=== PATIENT | female | born 1955 | race Caucasian/White ===

== ENCOUNTER → 2016-09-18 | Outpatient (CLI) | payer OTHER ==
[~2016-09-18] MED LIST: ACCL20 PO; ALBU0.08 INH; ALBU1AER9 INH; ARM1 PO; ASPI81TA57 PO; CALC600T9 PO; CYCL10TA6 PO; DICL1GEL28 TOP; FLUT1INH INH; GABA-112 PO; HYZ/50125 PO; IBUP-1050 PO; LORA-741 PO; LPT/20 PO; NRN100 PO; OMEP20CA9 PO; TRAM-10 PO; TRAZ50TA35 PO
== END | disposition home or self-care (01) ==
LOC: C.MAMM 12:54
PROVIDERS: ATTEND Internal Medicine
DX: M81.0 Age-related osteoporosis without current pathological fracture (principal); M85.80 Other specified disorders of bone density and structure, unspecified site

== ENCOUNTER → 2016-10-29 | Outpatient (CLI) | payer OTHER ==
[2016-10-29 09:35] LABS: HEMATOCRIT 44.6 % (37-47); MEAN CELL VOLUME 90.5 fL (80-100); MEAN CORPUSCULAR HGB CONC 34.3 g/dl (32-36); MEAN PLATELET VOLUME 10.1 fL (7.4-10.4); PLATELET COUNT 238 K/uL (130-400); RED BLOOD COUNT 4.93 M/uL (4.2-5.4); WHITE BLOOD COUNT 6.64 K/uL (4.8-10.8)
[2016-10-29 09:52] LABS: ALT/SGPT 26 U/L (12-78); BLOOD UREA NITROGEN 15 mg/dl (7-18); CARBON DIOXIDE 25 mmol/L (21-32); CHLORIDE 103 mmol/L (98-107); CHOLESTEROL 180 mg/dl (0-200); GLUCOSE 90 mg/dl (70-99); POTASSIUM 3.9 mmol/L (3.5-5.1); SODIUM 140 mmol/L (136-145)
[2016-10-29 10:02] LABS: ALKALINE PHOSPHATASE 101 U/L (45-117); AST/SGOT 17 U/L (15-37); CHOLESTEROL/HDL RATIO 3.1; ESTIMATED AVERAGE GLUCOSE 105 mg/dl; HA1C FLAG Normal (Normal); HDL CHOLESTEROL 58 mg/dl; LDL CHOLESTEROL CALCULATED 83 mg/dl; TRIGLYCERIDES 197 mg/dl (0-150); VERY LOW DENSITY LIPOPROT CALC 39 mg/dl
== END | disposition home or self-care (01) ==
LOC: C.LAB1850 06:56
PROVIDERS: ATTEND Internal Medicine
DX: E78.5 Hyperlipidemia, unspecified (principal); I10 Essential (primary) hypertension; R73.01 Impaired fasting glucose

== ENCOUNTER → 2016-12-30 | Outpatient (CLI) | payer OTHER ==
--- NOTE | 2016-12-30 17:16 | DIAGNOSTIC IMAGING REPORT ---
LEFT THIRD FINGER 3 VIEWS CLINICAL HISTORY: Left third finger pain status post trauma COMPARISON: None. DISCUSSION: There are mild to moderate osteoarthritic changes present at the proximal distal interphalangeal joints. No acute fractures or dislocations are visualized. IMPRESSION: Degenerative change. No acute fractures or dislocations identified Electronically signed by: Sean Montero M.D. 12/30/2016 5:15 PM Dictated Date/Time: 12/30/2016 5:14 PM
--- NOTE | 2016-12-30 17:17 | DIAGNOSTIC IMAGING REPORT ---
RIGHT GREAT TOE 3 VIEWS CLINICAL HISTORY: Right great toe pain status post trauma COMPARISON: None. DISCUSSION: There are mild osteoarthritic changes the level the first metatarsal phalangeal joint. No acute fractures or dislocations are visualized. IMPRESSION: Degenerative change. No acute fractures identified. Electronically signed by: Sean Montero M.D. 12/30/2016 5:15 PM Dictated Date/Time: 12/30/2016 5:15 PM
== END | disposition home or self-care (01) ==
LOC: C.RAD 16:50
PROVIDERS: ATTEND Physician Assistant Medical
DX: S69.92XA Unspecified injury of left wrist, hand and finger(s), initial encounter (principal); S99.921A Unspecified injury of right foot, initial encounter; X58.XXXA Exposure to other specified factors, initial encounter

== ENCOUNTER 2017-01-07 19:45 | Emergency (ER) | payer OTHER ==
[~2017-01-07] VITALS: Ht 170.2 cm; Wt 85.4 kg
[2017-01-07 19:47] VITALS: TEMP 37; Ht 170.2 cm; Wt 85.4 kg
[2017-01-07] MEDS ORDERED: ONDANSETRON INJ 2 MG/ML 2 ML VIAL IV STA (20:55)
[2017-01-07] MEDS ORDERED: MoRPHine SULFATE 4 MG/ML 1 ML CARP\\VIAL IV STA (20:55)
--- NOTE | 2017-01-07 20:57 | EMERGENCY ROOM VISIT NOTE ---
History Report prepared by Deandre: Bentley Castrejon Under the Supervision of: Dr. Jacek Vila M.D. First contact with patient: 20:43 Chief Complaint: BACK PAIN Stated Complaint: SHARP PAIN IN L LWR BACK History of Present Illness The patient is a 61 year old female who presents to the Emergency Room with complaints of worsening left-sided back pain for the past week. Today the pain became severe. The pain is worsened with breathing and movement. The pain does not radiate to the legs or abdomen. She denies recent injury or trauma. The patient denies fevers, chills, cough, nausea, vomiting, problems with her bowel movements, urinary symptoms, or rashes. The patient is currently on disability. She is not on any blood thinners. She denies history of blood clots or kidney stones. The patient has a history of breast cancer and is s/p double mastectomy. She has adverse reactions to Naproxen. Source of History: patient Onset: one week ago Position: back (left) Symptom Intensity: severe Timing: worsening Modifying Factors (Worsening): breathing, movement Associated Symptoms: No abdominal pain, No chills, No cough, No fevers, No nausea, No rash, No urinary symptoms, No vomiting Review of Systems See HPI for pertinent positives & negatives. A total of 10 systems reviewed and were otherwise negative. Past Medical & Surgical Medical Problems: (1) Acute renal insufficiency (2) Asthma (3) Breast cancer (4) Flu-like symptoms (5) HTN (hypertension) (6) Hypokalemia (7) Right shoulder injury (8) Severe headache (9) SIRS (systemic inflammatory response syndrome) (10) Vasovagal syncope Surgical Problems: (1) H/O bilateral mastectomy +Old medical records were reviewed. Nurse's notes were reviewed and I agree with. Family History Cancer Hypertension Social History Smoking Status: Never Smoker Alcohol Use: none Drug Use: none Marital Status: Housing Status: lives with significant other Occupation Status: retired Current/Historical Medications Scheduled Albuterol Sulfate (Proair Hfa), 2 PUFFS INH QID Anastrozole (Anastrozole), 1 MG PO DAILY Aspirin (Aspirin Ec Lo-Dose), 81 MG PO QAM Atorvastatin (Atorvastatin Calcium), 20 MG PO QAM Calcium Carbonate-Vitamin D (Calcium + D), 2 TABS PO QAM Fluticasone Furoate-Vilanterol (Breo Ellipta), 1 PUFF INH QAM Gabapentin (Gabapentin), 200 MG PO HS Gabapentin (Neurontin), 100 MG PO QAM Hctz/Losartan (Hyzaar 12.5MG/50MG), 1 TABS PO QAM Omeprazole (Prilosec), 20 MG PO BID Trazodone Hcl (Trazodone), 100 MG PO HS Zafirlukast (Zafirlukast), 20 MG PO BID Scheduled PRN Albuterol Soln (Proventil 0.083% 2.5MG/3ML), 2.5 MG INH UD PRN for SOB/Wheezing Cyclobenzaprine Hcl (Flexeril), 5-10 MG PO DAILY PRN for Muscle Spasm Diclofenac Sod (Voltaren 1% Top Gel), 1 APPLN TOP BID PRN for Knee Pain Ibuprofen (Advil), 400 MG PO Q4-6HRS PRN for Pain or Fever Lorazepam (Ativan), 0.5 MG PO Q6H PRN for Pain Tramadol (Ultram), 50 MG PO Q6H PRN for Pain Allergies Coded Allergies: Latex1 -Allergic Contact Dermititis (Verified Allergy, Unknown, hives, ) Naproxen (Verified Allergy, Unknown, rash, 04/10/15) Physical Exam Vital Signs Date Time Temp Pulse Resp B/P Pulse Ox O2 Delivery O2 Flow Rate FiO2 01/07/17 22:27 65 18 120/75 93 01/07/17 21:52 64 18 132/67 94 Room Air 01/07/17 19:47 37.0 75 18 132/94 95 Room Air Physical Exam General: Non ill appearing middle aged female in no acute distress, breathing comfortably on room air. Normal speech HEENT: Normal cephalic atraumatic. Pupils are equal round and reactive to light. Sclerae anicteric. Extraocular movements are intact. Oropharynx is pink with moist mucous membranes. No swelling of the mouth lips or tongue. Neck: Supple with a midline trachea. No meningeal signs or stiffness, no JVD or bruits. No Stridor. Chest: Clear to auscultation bilaterally. No wheezes or rhonchi. No increased work of breathing. Heart: regular rate and rhythm. Abdomen: Soft nontender, nondistended without rebound guarding or rigidity. Extremities: No cyanosis clubbing or edema. No calf tenderness or assymetry Spine/Back. Tenderness along the left lower posterior ribs that is worse with movement and palpation, no rashes. No CVA tenderness Skin: Good turgor without rashes. Neurologic exam: Cranial nerves two through 12 are intact. Motor and sensation are intact and symmetrical throughout. Medical Decision & Procedures ER Provider Diagnostic Interpretation: X-ray results as stated below per interpretation by me and the radiologist: SINGLE VIEW CHEST CLINICAL HISTORY: Atypical chest pain. FINDINGS: An AP, portable, upright chest radiograph is compared to chest x-ray and chest CT dated 04/22/2015. The examination is degraded by portable technique and patient rotation. The heart is mildly enlarged. The pulmonary vasculature is noncongested. Mild emphysema and chronic interstitial thickening are similar to previous. There is bibasilar atelectasis. The lungs and pleural spaces are otherwise clear. No pneumothorax is seen. The skeletal structures are osteopenic. The bony thorax is grossly intact. IMPRESSION: No active disease in the chest. Electronically signed by: Domingo Ramesh M.D. 01/07/2017 9:29 PM Dictated Date/Time: 01/07/2017 9:27 PM Laboratory Results 01/07/17 21:10 Red Blood Count 4.71, Mean Corpuscular Volume 90.2, Mean Corpuscular Hemoglobin 31.0, Mean Corpuscular Hemoglobin Concent 34.4, Mean Platelet Volume 9.4, Neutrophils (%) (Auto) 61.2, Lymphocytes (%) (Auto) 24.0, Monocytes (%) (Auto) 8.6, Eosinophils (%) (Auto) 5.2, Basophils (%) (Auto) 0.7, Neutrophils # (Auto) 4.48, Lymphocytes # (Auto) 1.76, Monocytes # (Auto) 0.63, Eosinophils # (Auto) 0.38, Basophils # (Auto) 0.05 01/07/17 21:10 Test 01/07/17 21:03 01/07/17 21:10 Urine Color YELLOW Urine Appearance CLEAR (CLEAR) Urine pH 5.0 (4.5-7.5) Urine Specific [place] 1.011 (1.000-1.030) Urine Protein NEG (NEG) Urine Glucose (UA) NEG (NEG) Urine Ketones NEG (NEG) Urine Occult Blood NEG (NEG) Urine Nitrite NEG (NEG) Urine Bilirubin NEG (NEG) Urine Urobilinogen NEG (NEG) Urine Leukocyte Esterase NEG (NEG) White Blood Count 7.32 K/uL (4.8-10.8) Red Blood Count 4.71 M/uL (4.2-5.4) Hemoglobin 14.6 g/dL (12.0-16.0) Hematocrit 42.5 % (37-47) Mean Corpuscular Volume 90.2 fL (80-100) Mean Corpuscular Hemoglobin 31.0 pg (25-34) Mean Corpuscular Hemoglobin Concent 34.4 g/dl (32-36) Platelet Count 217 K/uL (130-400) Mean Platelet Volume 9.4 fL (7.4-10.4) Neutrophils (%) (Auto) 61.2 % Lymphocytes (%) (Auto) 24.0 % Monocytes (%) (Auto) 8.6 % Eosinophils (%) (Auto) 5.2 % Basophils (%) (Auto) 0.7 % Neutrophils # (Auto) 4.48 K/uL (1.4-6.5) Lymphocytes # (Auto) 1.76 K/uL (1.2-3.4) Monocytes # (Auto) 0.63 K/uL (0.11-0.59) Eosinophils # (Auto) 0.38 K/uL (0-0.5) Basophils # (Auto) 0.05 K/uL (0-0.2) RDW Standard Deviation 43.2 fL (36.4-46.3) RDW Coefficient of Variation 13.0 % (11.5-14.5) Immature Granulocyte % (Auto) 0.3 % Immature Granulocyte # (Auto) 0.02 K/uL (0.00-0.02) Anion Gap 7.0 mmol/L (3-11) Est Creatinine Clear Calc Drug Dose 64.7 ml/min Estimated GFR () 69.4 Estimated GFR (Non- 59.9 BUN/Creatinine Ratio 13.5 (10-20) Calcium Level 9.0 mg/dl (8.5-10.1) Total Bilirubin 1.5 mg/dl (0.2-1) Direct Bilirubin 0.3 mg/dl (0-0.2) Aspartate Amino Transf (AST/SGOT) 18 U/L (15-37) Alanine Aminotransferase (ALT/SGPT) 28 U/L (12-78) Alkaline Phosphatase 78 U/L (45-117) Total Protein 7.8 gm/dl (6.4-8.2) Albumin 4.1 gm/dl (3.4-5.0) Lipase 112 U/L (73-393) Laboratory studies as stated above per my review. Medications Administered Medications (Trade) Dose Ordered Sig/Bryan Route Start Time Stop Time Status Last Admin Dose Admin Morphine Sulfate (MoRPHine SULFATE INJ) 4 mg NOW STAT IV 01/07/17 20:55 01/07/17 20:56 DC 01/07/17 21:51 4 MG Ondansetron HCl (Zofran Inj) 4 mg NOW STAT IV 01/07/17 20:55 01/07/17 20:56 DC 01/07/17 21:51 4 MG ECG Indication: back/shoulder pain Rate (beats per minute): 69 Rhythm: normal sinus Findings: no acute ischemic change, other (old inferior infarct) Comparison ECG Date: 2014 Change: no significant change ED Course 2049: Past medical records reviewed. The patient was evaluated in room A2, and a complete history and physical examination were performed. 2054: Zofran 4 mg IV, Morphine Sulfate 4 mg IV. 2004: Reassessed the patient. She was resting comfortably. Her D-dimer was within normal limits and her troponin was 0. Explained everything to her and she would like to go home. Medical Decision Differential diagnosis includes kidney infection, kidney stone, pneumothorax, PE , musculoskeletal. This patient comes in as described above. She has left sided back pain but it' s actually more in the left posterior lower chest. It is worse with palpation movement and breathing. She appears in no distress except for when moving. She has been doing a lot of work lately although there was no definite trauma. She has no numbness weakness of her legs and she has nothing to suggest cauda equina syndrome. She had no urinary symptoms to suggest infection or kidney stone. IV access established multiple blood tests was obtained. She is not driving. She was given morphine 4 mg IV and Zofran 4 mg IV for pain and nausea management. Urinalysis does not suggest a UTI with a culture pending. Chest x- ray was unremarkable and she has no pneumothorax or CHF or pneumonia or mass. EKG was unremarkable and she has nothing to suggest acute cardiac disease. She is normal kidney function. Her d-dimer was well within normal limits in the 200s. This makes PE highly unlikely. I think is most likely is musculoskeletal. She would like to be discharged home and think is reasonable for her to use anti-inflammatories such as ibuprofen. She has Ultram at home which she's not been using . I told she can use his but to be careful getting up and down as it could make her drowsy. She should return if: increasing pain , shortness of breath, worsening of symptoms, fever or chills, any new problems or concerns and encouraged close follow-up with her regular doctor to the next couple days for recheck as well. She was happy with plan and discharged to home. Impression Primary Impression: Left-sided back pain Additional Impression: Musculoskeletal back pain Scribe Attestation The scribe's documentation has been prepared under my direction and personally reviewed by me in its entirety. I confirm that the note above accurately reflects all work, treatment, procedures, and medical decision making performed by me. Departure Information Dispostion Home / Self-Care Referrals Heraclio Horowitz M.D. (PCP) Forms HOME CARE DOCUMENTATION FORM, IMPORTANT VISIT INFORMATION Patient Instructions My [facility] Additional Instructions Rest. Drink plenty of fluids. Return if: Increasing pain, worsening of symptoms, fever or chills, any new problems or concerns Use ibuprofen 400 mg every 6 hours if needed. Take with food May use your Ultram/tramadol as previously directed if needed Be careful as Ultram may make you drowsy Follow-up with your doctor in 1-2 days for recheck. Problem Qualifiers
[2017-01-07 21:11] LABS: URINE APPEARANCE CLEAR (CLEAR); URINE BILIRUBIN NEG (NEG); URINE COLOR YELLOW; URINE NITRITE NEG (NEG); URINE SPECIFIC GRAVITY 1.011 (1.000-1.030); UROBILINOGEN NEG (NEG)
[2017-01-07 21:14] LABS: MANUAL MICROSCOPIC REQUIRED? NO; REVIEW REQ? NO
[2017-01-07 21:21] LABS: BASO % 0.7 %; BASO ABS # 0.05 K/uL (0-0.2); COMPLETE YES; EOS % 5.2 %; HEMATOCRIT 42.5 % (37-47); IG% 0.3 %; LYMPH ABS # 1.76 K/uL (1.2-3.4); MEAN CELL VOLUME 90.2 fL (80-100); MEAN CORPUSCULAR HGB CONC 34.4 g/dl (32-36); MEAN PLATELET VOLUME 9.4 fL (7.4-10.4); MONO % 8.6 %; NEUT % 61.2 %; PLATELET COUNT 217 K/uL (130-400); RED BLOOD COUNT 4.71 M/uL (4.2-5.4); WHITE BLOOD COUNT 7.32 K/uL (4.8-10.8)
--- NOTE | 2017-01-07 21:30 | DIAGNOSTIC IMAGING REPORT ---
SINGLE VIEW CHEST CLINICAL HISTORY: Atypical chest pain. FINDINGS: An AP, portable, upright chest radiograph is compared to chest x-ray and chest CT dated 04/22/2015. The examination is degraded by portable technique and patient rotation. The heart is mildly enlarged. The pulmonary vasculature is noncongested. Mild emphysema and chronic interstitial thickening are similar to previous. There is bibasilar atelectasis. The lungs and pleural spaces are otherwise clear. No pneumothorax is seen. The skeletal structures are osteopenic. The bony thorax is grossly intact. IMPRESSION: No active disease in the chest. Electronically signed by: Domingo Ramesh M.D. 01/07/2017 9:29 PM Dictated Date/Time: 01/07/2017 9:27 PM
[2017-01-07 21:45] LABS: BUN/CREATININE RATIO 13.5 (10-20); POTASSIUM 3.8 mmol/L (3.5-5.1)
[2017-01-07 22:27] VITALS: BP 120/75; PULSE 65; O2SAT 93
== END 2017-01-07 22:29 | disposition home or self-care (01) ==
LOC: C.EDB 19:47 → C.EDA 22:29
DX: M54.9 Dorsalgia, unspecified (principal); Z85.3 Personal history of malignant neoplasm of breast; Z90.13 Acquired absence of bilateral breasts and nipples; J45.909 Unspecified asthma, uncomplicated; I10 Essential (primary) hypertension; Z80.9 Family history of malignant neoplasm, unspecified; Z82.49 Family history of ischemic heart disease and other diseases of the circulatory system; Z79.82 Long term (current) use of aspirin; Z79.899 Other long term (current) drug therapy

== ENCOUNTER → 2017-01-14 | Outpatient (CLI) | payer OTHER ==
--- NOTE | 2017-01-14 13:42 | DIAGNOSTIC IMAGING REPORT ---
THORACIC SPINE 3 VIEWS HISTORY: Pain M54.6 Thoracic back [id number] COMPARISON: None. FINDINGS: There is no fracture. No subluxation. Moderate degenerative disc changes throughout. IMPRESSION: Moderate degenerative disc change. No acute process. Electronically signed by: Sanchez Wilhelm M.D. 01/14/2017 1:41 PM Dictated Date/Time: 01/14/2017 1:40 PM
== END | disposition home or self-care (01) ==
LOC: C.RAD 13:08
PROVIDERS: ATTEND Physician Assistant Medical
DX: M54.6 Pain in thoracic spine (principal); M51.34 Other intervertebral disc degeneration, thoracic region

== ENCOUNTER → 2017-05-05 | Outpatient (CLI) | payer OTHER ==
[2017-05-05 09:36] LABS: HEMATOCRIT 44.5 % (37-47); MEAN CELL VOLUME 90.6 fL (80-100); MEAN CORPUSCULAR HEMOGLOBIN 30.1 pg (25-34); MEAN CORPUSCULAR HGB CONC 33.3 g/dl (32-36); MEAN PLATELET VOLUME 10.1 fL (7.4-10.4); PLATELET COUNT 225 K/uL (130-400); RED BLOOD COUNT 4.91 M/uL (4.2-5.4)
[2017-05-05 09:51] LABS: ALT/SGPT 25 U/L (12-78); AST/SGOT 20 U/L (15-37); BLOOD UREA NITROGEN 16 mg/dl (7-18); BUN/CREATININE RATIO 16.7 (10-20); CALCIUM 9.4 mg/dl (8.5-10.1); CARBON DIOXIDE 27 mmol/L (21-32); CHLORIDE 108 mmol/L (98-107); CHOLESTEROL 132 mg/dl (0-200); CREATININE 0.94 mg/dl (0.60-1.20); GLUCOSE 86 mg/dl (70-99); SODIUM 142 mmol/L (136-145); TRIGLYCERIDES 185 mg/dl (0-150); VERY LOW DENSITY LIPOPROT CALC 37 mg/dl
[2017-05-05 09:54] LABS: ALB/GLOB RATIO 1.2 (0.9-2); ALKALINE PHOSPHATASE 72 U/L (45-117); CHOLESTEROL/HDL RATIO 2.9; HDL CHOLESTEROL 46 mg/dl; LDL CHOLESTEROL CALCULATED 49 mg/dl
== END | disposition home or self-care (01) ==
LOC: C.LAB1850 07:00
PROVIDERS: ATTEND Internal Medicine
DX: E78.5 Hyperlipidemia, unspecified (principal); I10 Essential (primary) hypertension

== ENCOUNTER → 2017-05-27 | Outpatient (CLI) | payer OTHER | LOC: C.PAPS 17:03 | PROVIDERS: ATTEND Obstetrics & Gynecology | DX: Z12.4 Encounter for screening for malignant neoplasm of cervix (principal) ==

== ENCOUNTER → 2017-07-22 | Outpatient (CLI) | payer OTHER ==
--- NOTE | 2017-07-22 12:17 | DIAGNOSTIC IMAGING REPORT ---
CHEST 2 VIEWS ROUTINE CLINICAL HISTORY: 62 years-old Female presenting with C50.912, history of breast cancer. TECHNIQUE: PA and lateral views of the chest were obtained. COMPARISON: 01/07/2017. FINDINGS: Atherosclerosis of aortic arch. Cardiac silhouette normal in size. Prominent contour at the right paramediastinal lung base may relate to prominence of a pericardial fat pad, the suprahepatic IVC or diaphragm eventration. Lungs and pleural spaces clear. The trachea appears narrow Osseous structures normal. Upper abdomen normal. IMPRESSION: 1. Evaluation for intrathoracic metastatic disease is limited. If there is clinical concern for this diagnosis, chest CT should be obtained. 2. No acute intrathoracic pathology. 3. Apparent tracheal narrowing similar to prior exam. Electronically signed by: Carlos Crane M.D. 07/22/2017 12:16 PM Dictated Date/Time: 07/22/2017 12:13 PM
== END | disposition home or self-care (01) ==
LOC: C.RAD 11:55
PROVIDERS: ATTEND Nurse Practitioner Family
DX: C50.912 Malignant neoplasm of unspecified site of left female breast (principal)

== ENCOUNTER 2017-08-13 16:42 | Emergency (ER) | payer OTHER ==
[~2017-08-13] VITALS: Ht 170.2 cm; Wt 83.0 kg
[~2017-08-13 16:42] MED LIST changes: -ALBINS/ INH; -ALBU18002 INH; -ASPI81TA28 PO; -DICL1GEL12 TOP
[2017-08-13 16:43] VITALS: TEMP 36.5; Ht 170.2 cm; Wt 83.0 kg
[2017-08-13] MEDS ORDERED: DICL1GEL12 TOP (17:15)
[2017-08-13] MEDS ORDERED: ASPI81TA28 PO (17:15)
[2017-08-13] MEDS ORDERED: ALBINS/ INH (17:15)
[2017-08-13] MEDS ORDERED: ALBU18002 INH (17:15)
--- NOTE | 2017-08-13 17:39 | DIAGNOSTIC IMAGING REPORT ---
LEFT LOWER EXTREMITY VENOUS DOPPLER HISTORY: Left calf pain. Hx Breast Ca. COMPARISON STUDY: None. FINDINGS: There is normal compressibility, flow, and augmentation within the left lower extremity deep venous system. IMPRESSION: No DVT within the left lower extremity. Electronically signed by: Lucas Street M.D. 08/13/2017 5:38 PM Dictated Date/Time: 08/13/2017 5:36 PM
[2017-08-13 18:43] VITALS: BP 137/86; PULSE 78; O2SAT 98
--- NOTE | 2017-08-13 22:52 | EMERGENCY ROOM VISIT NOTE ---
History First contact with patient: 16:47 Chief Complaint: LEG PAIN,LEG INJURY Stated Complaint: LEFT LEG PAIN, R/O DVT- PHYSICIAN REFERRED History of Present Illness The patient is a 62 year old female who presents to the Emergency Room with complaints of left leg pain off and on for the past few weeks. The patient does not recall injury or trauma. She went to her primary care physician office today where evidently blood work and x-ray were normal. The patient was referred to the ER for ultrasound to rule out DVT. The patient does have a history of breast cancer several years ago. She does not have recent travel history and is not on hormonal medication. The patient states that her pain is primarily in the left calf that worsens with ambulation. She does not have numbness or paresthesias. She rates her current discomfort a 2/10. There is no chest pain, chest tightness, or shortness of breath. Review of Systems More than 10 systems were reviewed and otherwise negative with the exception of history of present illness. Past Medical/Surgical History Medical Problems: (1) Acute renal insufficiency (2) Asthma (3) Breast cancer (4) Flu-like symptoms (5) HTN (hypertension) (6) Hypokalemia (7) Right shoulder injury (8) Severe headache (9) SIRS (systemic inflammatory response syndrome) (10) Vasovagal syncope Surgical Problems: (1) H/O bilateral mastectomy Family History Cancer Hypertension Social History Smoking Status: Never Smoker Alcohol Use: none Drug Use: none Marital Status: Housing Status: lives with significant other Occupation Status: retired Current/Historical Medications Scheduled Albuterol Sulfate (Proair Respiclick), 2 PUFFS INH QID Anastrozole (Anastrozole), 1 MG PO DAILY Aspirin (Aspirin Ec), 81 MG PO QAM Atorvastatin (Atorvastatin Calcium), 20 MG PO QAM Calcium Carbonate-Vitamin D (Calcium + D), 2 TABS PO QAM Fluticasone Furoate-Vilanterol (Breo Ellipta), 1 PUFF INH QAM Gabapentin (Gabapentin), 300 MG PO HS Hctz/Losartan (Hyzaar 12.5MG/50MG), 1 TABS PO QAM Omeprazole (Prilosec), 20 MG PO BID Trazodone Hcl (Trazodone), 150 MG PO HS Zafirlukast (Zafirlukast), 20 MG PO BID Scheduled PRN Albuterol Sulf (Proventil 0.083% 2.5MG/3ML), 2.5 MG INH DIRECTED PRN for Shortness of Breath Cyclobenzaprine Hcl (Flexeril), 5-10 MG PO DAILY PRN for Muscle Spasm Diclofenac Sodium (Topical) (Voltaren 1% Top Gel), 1 APPLN TOP BID PRN for Pain Ibuprofen (Advil), 400 MG PO Q4-6HRS PRN for Pain or Fever Lorazepam (Ativan), 0.5 MG PO Q6H PRN for Anxiety/Agitation Tramadol (Ultram), 50 MG PO Q6H PRN for Pain Physical Exam Vital Signs Date Time Temp Pulse Resp B/P (MAP) Pulse Ox O2 Delivery O2 Flow Rate FiO2 08/13/17 18:43 78 18 137/86 98 Room Air 08/13/17 16:43 36.5 99 16 153/77 94 Physical Exam VITALS: Vitals are noted on the nurse's note and reviewed by myself. Vital signs stable. GENERAL: Well-developed, well-nourished, white female, who is in no acute distress and resting comfortably. Patient is cooperative with the examination. HEART: Regular rate and rhythm without murmurs gallops or rubs. LUNGS: Clear to auscultation bilaterally without wheezes, rales or rhonchi. No retractions or accessory muscle use. MUSCULOSKELETAL: Tenderness appreciated in the left posterior calf. There is no distinct edema or palpable cord. Neurovascular status intact to the lower extremity. NEURO: Patient was alert and oriented to person place and time. CN II through XII grossly intact. Deep tendon reflexes 2+ throughout. Medical Decision & Procedures ER Provider Diagnostic Interpretation: LEFT LOWER EXTREMITY VENOUS DOPPLER HISTORY: Left calf pain. Hx Breast Ca. COMPARISON STUDY: None. FINDINGS: There is normal compressibility, flow, and augmentation within the left lower extremity deep venous system. IMPRESSION: No DVT within the left lower extremity. ED Course Physical exam and history were performed. Nursing notes, EMR, and Medication List were personally reviewed. Patient appears to have ongoing left calf pain for the past few weeks. The patient was referred by her primary care physician for ultrasound. Ultrasound was performed and is without evidence of DVT. The patient does have tramadol at home that she can continue to use. The patient is to follow with her primary care physician with any ongoing or persistent symptoms. She was otherwise invited back to the ER anytime. The chart was completed utilizing [employer] Speech Voice Recognition Software. Grammatical errors, random word insertions, pronoun errors, and incomplete sentences are an occasional consequence of this system due to software limitations, ambient noise, and hardware issues. Any formal questions or concerns about the content, text, or information contained within the body of this dictation should be directly addressed to the provider for clarification. . Medical Decision Differential diagnosis: Etiologies such as DVT, musculoskeletal, infection, joint effusion, trauma, lymphedema, idiopathic, CHF, as well as others were entertained.. Impression Primary Impression: Pain of left calf Departure Information Dispostion Home / Self-Care Condition GOOD Forms HOME CARE DOCUMENTATION FORM, IMPORTANT VISIT INFORMATION Patient Instructions My [facility] Additional Instructions You were seen and evaluated today on an emergency basis only. This is not a substitute for, or an effort to provide, complete comprehensive medical care. It is not possible to recognize and treat all injuries or illnesses in a single emergency department visit. For this reason it is recommended that you followup with Dr. Horowitz's office for ongoing care and evaluation. You are welcome to return to the emergency department anytime with new, worsening, or concerning symptoms.
== END 2017-08-13 18:44 | disposition home or self-care (01) ==
LOC: C.EDB 16:43 → C.EDC 18:44
DX: M79.662 Pain in left lower leg (principal); J45.909 Unspecified asthma, uncomplicated; I10 Essential (primary) hypertension; Z79.82 Long term (current) use of aspirin; Z79.51 Long term (current) use of inhaled steroids; Z85.3 Personal history of malignant neoplasm of breast; Z90.13 Acquired absence of bilateral breasts and nipples; Z80.9 Family history of malignant neoplasm, unspecified; Z82.49 Family history of ischemic heart disease and other diseases of the circulatory system

== ENCOUNTER → 2017-08-13 | Outpatient (CLI) | payer OTHER ==
[~2017-08-13] MED LIST changes: +ALBINS/ INH; +ALBU18002 INH; +ASPI81TA28 PO; +DICL1GEL12 TOP
--- NOTE | 2017-08-13 13:48 | DIAGNOSTIC IMAGING REPORT ---
L KNEE 3 VIEWS CLINICAL HISTORY: Left knee pain. COMPARISON: Left knee radiograph September 11, 2014. FINDINGS: Alignment of left knee is anatomic. There is no fracture or suspicious lesion. There is no significant left knee joint effusion. There is mild medial and patellofemoral compartment joint space narrowing. Note is made of a 1.4 cm calcification which projects over the intercondylar notch. IMPRESSION: 1. No acute fracture. 2. 1.4 cm calcification which projects over the intercondylar notch and suggests a joint body. 3. Mild to moderate osteoarthritis within the medial and patellofemoral compartments of the left knee. Electronically signed by: Berny Bledsoe M.D. 08/13/2017 1:47 PM Dictated Date/Time: 08/13/2017 1:41 PM
== END | disposition home or self-care (01) ==
LOC: C.LAB1850 13:25
PROVIDERS: ATTEND Internal Medicine
DX: M25.562 Pain in left knee (principal); M79.605 Pain in left leg

== ENCOUNTER → 2017-11-13 | Outpatient (CLI) | payer OTHER ==
[~2017-11-13] MED LIST changes: +ALBINS/ INH; -ALBU0.08 INH; +ALBU18002 INH; -ALBU1AER9 INH; +ASPI81TA28 PO; -ASPI81TA57 PO; +DICL1GEL12 TOP; -DICL1GEL28 TOP; -GABA-112 PO; -LPT/20 PO; +LPT20 PO
[2017-11-13 12:40] LABS: BASO % 0.5 %; BASO ABS # 0.03 K/uL (0-0.2); EOS % 6.3 %; EOS ABS # 0.38 K/uL (0-0.5); HEMATOCRIT 41.9 % (37-47); HEMOGLOBIN 14.7 g/dL (12.0-16.0); IG# 0.01 K/uL (0.00-0.02); LYMPH % 24.8 %; LYMPH ABS # 1.49 K/uL (1.2-3.4); MEAN CELL VOLUME 89.3 fL (80-100); MEAN CORPUSCULAR HEMOGLOBIN 31.3 pg (25-34); MEAN CORPUSCULAR HGB CONC 35.1 g/dl (32-36); MEAN PLATELET VOLUME 10.1 fL (7.4-10.4); MONO ABS # 0.48 K/uL (0.11-0.59); NEUT % 60.2 %; NEUT ABS # 3.61 K/uL (1.4-6.5); PLATELET COUNT 207 K/uL (130-400); RED CELL DISTRIBUTION WIDTH SD 42.3 fL (36.4-46.3)
[2017-11-13 13:04] LABS: ALBUMIN 3.9 gm/dl (3.4-5.0); ALT/SGPT 26 U/L (12-78); BLOOD UREA NITROGEN 15 mg/dl (7-18); CALCIUM 9.2 mg/dl (8.5-10.1); CARBON DIOXIDE 26 mmol/L (21-32); CHOLESTEROL 152 mg/dl (0-200); CREATININE 0.94 mg/dl (0.60-1.20); GLUCOSE 99 mg/dl (70-99); SODIUM 136 mmol/L (136-145)
[2017-11-13 13:15] LABS: ALKALINE PHOSPHATASE 74 U/L (45-117); AST/SGOT 19 U/L (15-37); LDL CHOLESTEROL CALCULATED 71 mg/dl; TOTAL PROTEIN 7.4 gm/dl (6.4-8.2)
== END | disposition home or self-care (01) ==
LOC: C.LABBFT 10:06
PROVIDERS: ATTEND Internal Medicine
DX: E55.9 Vitamin D deficiency, unspecified (principal); I10 Essential (primary) hypertension

== ENCOUNTER → 2017-11-30 | Outpatient (CLI) | payer OTHER ==
[~2017-11-30] MED LIST changes: -ACCL20 PO; +ZAFI1TAB11 PO
--- NOTE | 2017-11-30 11:15 | DIAGNOSTIC IMAGING REPORT ---
C-SPINE ROUTINE 4 OR 5 VIEWS HISTORY: 62 years-old Female J30.81 Allergic rhinitis due to animal dander. Acute neck pain. COMPARISON: Chest radiographs 07/22/2017 TECHNIQUE: 5 views of the cervical spine FINDINGS: The seventh vertebral body is partially secured on the lateral view secondary to patient's shoulder. Moderate intervertebral disc space narrowing at C5-C6 and C6-C7 with multilevel moderate uncovertebral spurring and mild facet arthrosis. 2 mm anterolisthesis C4 on C5 is likely secondary to underlying degenerative changes. No acute fracture identified. Bony neuroforaminal stenosis on the right at C5-C6 appears mild to moderate. Mild bony neuroforaminal stenosis is seen on the left at C5-C6 and C6-C7. Lung apices appear clear. No prevertebral soft tissue swelling identified. IMPRESSION: 1. No acute fracture or subluxation identified. 2. Degenerative changes as above. The above report was generated using voice recognition software. It may contain grammatical, syntax or spelling errors. Electronically signed by: Ramy Calvillo M.D. 11/30/2017 11:13 AM Dictated Date/Time: 11/30/2017 11:11 AM
== END | disposition home or self-care (01) ==
LOC: C.RAD1850 10:39
PROVIDERS: ATTEND Internal Medicine Pulmonary Disease
DX: M54.2 Cervicalgia (principal); J30.81 Allergic rhinitis due to animal (cat) (dog) hair and dander; M99.51 Intervertebral disc stenosis of neural canal of cervical region

== ENCOUNTER 2019-07-12 01:26 | Inpatient (IN) ==
[2019-07-12] MEDS ORDERED: HYDROmorphone INJ 0.5 MG/0.5 ML SYR IV STA (02:03)
[2019-07-12] MEDS ORDERED: ONDANSETRON INJ 2 MG/ML 2 ML VIAL IV STA (02:03)
[2019-07-12] MEDS ORDERED: ACETAMINOPHEN 1,000 MG/100 ML VIAL IV STA (02:03)
[2019-07-12] MEDS ORDERED: LIDOCAINE 5% 1 PATCH TD STA (02:03)
[2019-07-12 02:17] LABS: Basophils # (auto) 0.05 K/uL (0-0.2); Basophils % (auto) 0.6 %; Eosinophils # (auto) 0.43 K/uL (0-0.5); Eosinophils % (auto) 4.8 %; Hematocrit (blood only) 41.4 % (37-47); Hemoglobin 14.1 g/dL (12.0-16.0); Immature Granulocytes # (auto) 0.01 K/uL (0.00-0.02); Immature Granulocytes % (auto) 0.1 %; Lymphocytes # (auto) 1.68 K/uL (1.2-3.4); Lymphocytes % (auto) 18.6 %; Mean Corpuscular Hemoglobin 30.8 pg (25-34); Mean Corpuscular Hgb Conc 34.1 g/dL (32-36); Mean Corpuscular Volume 90.4 fL (80-100); Mean Platelet Volume 9.4 fL (7.4-10.4); Monocytes # (auto) 0.63 K/uL (0.11-0.59); Neutrophils # (auto) 6.24 K/uL (1.4-6.5); Neutrophils % (auto) 68.9 %; Platelet Count 248 K/uL (130-400); RDW Coefficient of Variation 12.4 % (11.5-14.5); RDW Standard Deviation 41.1 fL (36.4-46.3); Red Blood Count 4.58 M/uL (4.2-5.4); White Blood Count 9.04 K/uL (4.8-10.8)
[2019-07-12 02:30] LABS: Albumin Level 3.8 gm/dl (3.4-5.0); BUN Creatinine Ratio 10.8 (10-20); Creatinine Clr Calc Pharmacy 57.3 ml/min; Est GFR (African American) 62.7; Est GFR (Non-African American) 54.1; Potassium 3.8 mmol/L (3.5-5.1)
[2019-07-12 02:43] LABS: Bilirubin,Total 0.9 mg/dl (0.2-1); Globulin 3.7 gm/dl (2.5-4.0); Thyroid Stimulating Hormone 1.52 uIu/ml (0.300-4.500); Total Protein 7.5 gm/dl (6.4-8.2); Troponin I 0.13 ng/ml (0-0.045)
[2019-07-12 02:49] LABS: Lyme Ab IgG w/WB Rflx Negative (Negative); Lyme Ab IgM w/WB Rflx Negative (Negative)
[2019-07-12] MEDS ORDERED: NITROGLYCERIN 2% OINTMENT 30GM TUBE EXT ONE (02:54)
[2019-07-12] MEDS ORDERED: ASPIRIN CHEW 324 MG PO STA (02:54)
--- NOTE | 2019-07-12 04:01 | History & Physical Report ---
Date of Service July 12, 2019 Assessment & Plan (1) Acute right-sided thoracic back pain: Suspect component of musculoskeletal pain -Lidoderm patch -Tylenol PRN -Voltaren gel (2) Elevated troponin: No acute EKG changes. Patient risk factors include HTN, NLP, prior TIA. She does admit to some exertional dyspnea that has worsened over the years. Denies exertional chest pain. Troponin = 0.13 -Cardiac monitoring -Troponin q 8 hours x 3 sets -Check 2D echo -Cardiology consultation appreciated -Continue ASA, Crestor, Losartan Present on Admission?: Yes (3) Breast cancer: S/p mastectomy. -Managed with anastrazole, continue Present on Admission?: Yes (4) Dyslipidemia: Chronic. Stable -Continue Crestor - Increase to 10mg (5) Esophageal reflux: Chronic. Stable -Continue Omeprazole Present on Admission?: Yes (6) Hypertension: Blood pressure stable -Continue Losartan -Continue to monitor Present on Admission?: Yes (7) Vitamin D deficiency: Chronic. Stable -Continue Calcium/Vitamin D Present on Admission?: Yes (8) Asthma: Chronic. Stable. No wheezing on exam -Continue Albuterol, Zafirlukast History of Present Illness Chief Complaint: back pain Primary Care Provider: Heraclio Horowitz MD Lashonda France is a 64yo C female with history of HTN, HLP, Breast CA s/p mastectomy on Anastrazole therapy presenting with back and chest discomfort. She reports her discomfort starting approximately 1 week ago. She was seen in the ER on 07/10 - had an elevated D-dimer at that time, 1028. CTA Chest was negative for PE. She was given a small amount of Oxycodone and discharged home. She reports taking 2 Oxycodone which caused some nausea and vomiting, no relief in back pain. She presents today with severe discomfort - pain in mid thoracic back with radiation to anterior portion of chest. Worsening over the last 2 days. 10/10 in severity, cramping in nature. Improved slightly with use of ice. Pain is non-pleuritic/non-positional and non-exertional. She has stable SOB and cough from her asthma. Denies palpitations, edema, weight gain. Occasional dizziness upon standing. ER Course: Acetaminophen, ASA, Dilaudid, Nitro, Zofran Allergies Allergy/AdvReac Type Severity Reaction Status Date / Time latex Allergy Severe HIVES Verified 07/12/19 01:57 naproxen Allergy Intermediate RASH Verified 07/12/19 01:57 Home Medications Home Medications Medication Instructions Recorded Confirmed Type albuterol sulfate 2.5 mg INHALATION QID PRN 05/16/18 07/12/19 History aspirin 81 mg PO QAM 05/16/18 07/12/19 History fluticasone furoate-vilanterol 1 puff INHALATION QAM 05/16/18 07/12/19 History omeprazole 20 mg PO BID 05/16/18 07/12/19 History zafirlukast 20 mg PO BID 05/16/18 07/12/19 History Calcium 600 + D(3) 2 cap PO QAM 12/13/18 07/12/19 History sertraline 100 mg PO QAM 04/20/19 07/12/19 History lorazepam 0.5 mg tablet 0.5 mg PO DAILY PRN #30 tab 05/10/19 07/12/19 Rx gabapentin 100 mg capsule See Rx Instructions .ROUTE 05/24/19 07/12/19 History .COMPLEX #360 cap losartan 50 mg tablet 50 mg PO DAILY #90 tab 05/24/19 07/12/19 History rosuvastatin 5 mg tablet 5 mg PO DAILY #90 tab 05/24/19 07/12/19 History trazodone 100 mg tablet 200 mg PO HS #180 tab 05/24/19 07/12/19 History tramadol 50 mg tablet 50 mg PO Q6H PRN #180 tab 06/09/19 07/12/19 Rx anastrozole 1 mg tablet 1 mg PO DAILY #90 tab 07/05/19 07/12/19 Rx albuterol sulfate [Ventolin HFA] 2 puffs INH QID PRN 07/10/19 07/12/19 History diclofenac sodium 4 gm TOP QID PRN 07/10/19 07/12/19 History oxycodone 5 - 10 mg PO Q4H PRN #8 tab 07/10/19 07/12/19 Rx oxycodone-acetaminophen 1 tab PO Q6H PRN 07/10/19 07/12/19 History Past Med/Surg History Social History Preferred Language: Maltese Communication Ability: Effective Visual Impairment: No Limitations Hearing Ability: Normal 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 Recent surgery Physical Exam Physical Exam: General: patient resting comfortably, NAD, non-toxic in appearance, AA&O x 4 Skin: warm, dry, intact, no rashes or lesions HEENT: NC/AT, PERRL, EOMI, anicteric sclera, conjunctiva without injection, external ear normal to inspection and nontender, nares patent, moist mucus membranes, dentition intact, no oropharyngeal lesions, neck supple, trachea midline, no LAD, no thyromegaly, no JVD Heart: +S1/S2, regular, 3/6 KATHRYN at 2nd right ICS with radiation to carotids, no reproducible chest wall or rib pain, no rash on chest or back Lungs: equal air entry bilaterally, no rales/rhonchi/wheezes Abd: +BS, soft, NT/ND, no masses/organomegaly/ascites Ext: warm, 2+ pulses in UE/LE bilaterally, no clubbing/cyanosis or edema Neuro: nonfocal, patient AA&O x 4, speech intact, no facial droop, moving all extremities on command with equal strength 5/5 Results & Data Vital Signs (Past 12 Hours) Vital Signs Temp Pulse Resp BP Pulse Ox 07/12/19 04:00 69 12 104/60 93 07/12/19 03:46 68 15 92 07/12/19 03:45 69 16 100/55 L 93 07/12/19 03:31 67 14 93 07/12/19 03:30 67 12 100/57 L 94 07/12/19 03:28 68 19 94 07/12/19 03:27 71 14 100/61 95 07/12/19 03:01 81 12 94 07/12/19 03:00 72 13 102/62 94 07/12/19 02:58 72 15 92 07/12/19 02:57 71 14 102/53 L 91 07/12/19 01:29 37.5 C 87 19 138/69 93 Laboratory Results Lab Results 07/12/19 07/12/19 07/12/19 Range/Units 01:50 01:50 01:50 WBC 9.04 (4.8-10.8) K/uL RBC 4.58 (4.2-5.4) M/uL Hgb 14.1 (12.0-16.0) g/dL Hct 41.4 (37-47) % MCV 90.4 (80-100) fL MCH 30.8 (25-34) pg MCHC 34.1 (32-36) g/dL RDW Std Deviation 41.1 (36.4-46.3) fL RDW Coeff of Anjana 12.4 (11.5-14.5) % Plt Count 248 (130-400) K/uL MPV 9.4 (7.4-10.4) fL Immature Gran % (Auto) 0.1 % Neut % (Auto) 68.9 % Lymph % (Auto) 18.6 % [place] % (Auto) 7.0 % Eos % (Auto) 4.8 % Baso % (Auto) 0.6 % Immature Gran # (Auto) 0.01 (0.00-0.02) K/uL Neut # (Auto) 6.24 (1.4-6.5) K/uL Lymph # (Auto) 1.68 (1.2-3.4) K/uL [place] # (Auto) 0.63 H (0.11-0.59) K/uL Eos # (Auto) 0.43 (0-0.5) K/uL Baso # (Auto) 0.05 (0-0.2) K/uL Sodium 140 (136-145) mmol/L Potassium 3.8 (3.5-5.1) mmol/L Chloride 104 (98-107) mmol/L Carbon Dioxide 32 (21-32) mmol/L Anion Gap 4.0 (3-11) BUN 12 (7-18) mg/dl Creatinine 1.07 (0.6-1.2) mg/dl Est Cr Clr Drug Dosing 57.3 ml/min Est GFR ( Amer) 62.7 Est GFR (Non-Af Amer) 54.1 BUN/Creatinine Ratio 10.8 (10-20) Glucose 105 H (70-99) mg/dl Calcium 9.0 (8.5-10.1) mg/dl Magnesium 2.0 (1.8-2.4) mg/dl Total Bilirubin 0.9 (0.2-1) mg/dl AST 13 L (15-37) U/L ALT 18 (12-78) U/L Alkaline Phosphatase 77 (45-117) U/L Troponin I 0.130 H* (0-0.045) ng/ml Total Protein 7.5 (6.4-8.2) gm/dl Albumin 3.8 (3.4-5.0) gm/dl Globulin 3.7 (2.5-4.0) gm/dl Albumin/Globulin Ratio 1.0 (0.9-2) Lipase 113 (73-393) U/L TSH 1.520 (0.300-4.500) uIu/ml Lyme Disease IgG Ab Negative (Negative) Lyme Disease IgM Ab Negative (Negative) ECG Additional Comments: NSR, no acute ischemic changes Code Status & VTE Plan Code Status Full code VTE Prophylaxis Plan VTE Prophylaxis will be ordered: Yes PG Care Time/CCT Total # of Minutes Spent Total Time Spent with Patient: Total time spent is greater than 50% in coordination of care (as documented) at patient's floor/unit and/or counseling patient: (1) Breast cancer Breast location: unspecified site of breast (2) Esophageal reflux Esophagitis presence: esophagitis presence not specified Qualified Code(s): K21.9 - Gastro-esophageal reflux disease without esophagitis (3) Hypertension Hypertension type: essential hypertension Qualified Code(s): I10 - Essential (primary) hypertension
--- NOTE | 2019-07-12 04:03 | Emergency Department Note ---
ED Visit Note I saw this patient in conjunction with Bebo Cardozo PA-C. I agree with his decision making and treatment plan. This is a 64-year-old female patient who presents to the emergency department with right-sided back pain. On physical exam, the patient's lung sounds were clear and heart tones were normal. Examination of the back revealed a Lidoderm patch over the right mid thoracic spine which is the location of the patient's discomfort. The patient had a troponin which was positive. She never had any associated chest pain or shortness of breath but was significantly nauseated. The patient will be evaluated by the hospitalist service for further inpatient care and to trend the troponin. .
[2019-07-12 05:09] LABS: Appearance Urine Clear (Clear); Bilirubin Urine Negative (Negative); Blood Urine Negative (Negative); Color Urine Yellow; Glucose Urine UA Negative (Negative); Ketones Urine Negative (Negative); Leukocyte Esterase Urine Negative (Negative); Nitrite Urine Negative (Negative); Protein Urine Negative (Negative); Specific Gravity Urine <= 1.005 (1.000-1.030); Urobilinogen Urine Negative (Negative)
[2019-07-12 05:36] LABS: Amphetamines+Metham, Urine Neg (Neg); Barbiturates, Urine Neg (Neg); Benzodiazepine, Urine Neg (Neg); Cocaine, Urine Neg (Neg); MDMA (Ecstacy), Urine Pos (Neg); Methadone, Urine Neg (Neg); Opiate, Urine Pos (Neg); Phencyclidine, Urine Neg (Neg)
[2019-07-12] MEDS ORDERED: NITROGLYCERIN SL 0.4 MG/TAB TAB SL PRN (05:58)
[2019-07-12] MEDS ORDERED: ONDANSETRON INJ 2 MG/ML 2 ML VIAL IV PRN (05:58)
[2019-07-12] MEDS ORDERED: LORazepam 0.5 MG TAB PO PRN (05:58)
[2019-07-12] MEDS ORDERED: ALBUTEROL 0.083% NEBU SOLN 3 ML VIAL INH PRN (05:58)
--- NOTE | 2019-07-12 06:06 | Emergency Department Note ---
History of Present Illness General Chief complaint: Chest/Rib Injury Stated complaint: SEVERE PAIN IN RIGHT LUNG AREA Time Seen by Provider: 07/12/19 01:47 History of Present Illness Maximum Pain Intensity: 10 This is a 64-year-old female presenting to the emergency department for evaluat ion of right-sided back pain that began to worsen tonight. The patient has had these symptoms off and on for the past several days. She was seen 2 days ago in this department for this complaint where she had a normal EKG and negative troponin. Her d-dimer was markedly elevated at over thousand and CT angiogram was performed, and negative. The patient was given a course of pain medication for her symptoms, and states that she took this today as her pain returned. The patient rates the pain a 10/10, sharp, and nonradiating just to the right of her low thoracic spine. She did have chickenpox as a child but has not noticed a rash on her back or side. The patient states that she has had some nausea and vomiting after eating food tonight. No fevers or chills. She does not report distinct chest pain, chest tightness, or shortness of breath. She rates her current pain a 10/10. Home Medications Home Medications Medication Instructions Recorded Confirmed Type albuterol sulfate 2.5 mg INHALATION QID PRN 05/16/18 07/12/19 History aspirin 81 mg PO QAM 05/16/18 07/12/19 History fluticasone furoate-vilanterol 1 puff INHALATION QAM 05/16/18 07/12/19 History omeprazole 20 mg PO BID 05/16/18 07/12/19 History zafirlukast 20 mg PO BID 05/16/18 07/12/19 History Calcium 600 + D(3) 2 cap PO QAM 12/13/18 07/12/19 History sertraline 100 mg PO QAM 04/20/19 07/12/19 History lorazepam 0.5 mg tablet 0.5 mg PO DAILY PRN #30 tab 05/10/19 07/12/19 Rx gabapentin 100 mg capsule See Rx Instructions .ROUTE 05/24/19 07/12/19 History .COMPLEX #360 cap losartan 50 mg tablet 50 mg PO DAILY #90 tab 05/24/19 07/12/19 History rosuvastatin 5 mg tablet 5 mg PO DAILY #90 tab 05/24/19 07/12/19 History trazodone 100 mg tablet 200 mg PO HS #180 tab 05/24/19 07/12/19 History tramadol 50 mg tablet 50 mg PO Q6H PRN #180 tab 06/09/19 07/12/19 Rx anastrozole 1 mg tablet 1 mg PO DAILY #90 tab 07/05/19 07/12/19 Rx albuterol sulfate [Ventolin HFA] 2 puffs INH QID PRN 07/10/19 07/12/19 History diclofenac sodium 4 gm TOP QID PRN 07/10/19 07/12/19 History oxycodone 5 - 10 mg PO Q4H PRN #8 tab 07/10/19 07/12/19 Rx oxycodone-acetaminophen 1 tab PO Q6H PRN 07/10/19 07/12/19 History Allergies Allergy/AdvReac Type Severity Reaction Status Date / Time latex Allergy Severe HIVES Verified 07/12/19 01:57 naproxen Allergy Intermediate RASH Verified 07/12/19 01:57 Past Med/Surg History Medical History Anxiety Asthma (Chronic) USES INHALER ONCE A DAY- FOLLOWS WITH DR. THRASHER- WITH [facility]- LAST ATTACK 2 YRS AGO Breast cancer (Chronic) RESOLVED 6 YRS AGO GERD (gastroesophageal reflux disease) HTN (hypertension) (Chronic) Hyperlipidemia Osteoarthritis Peripheral neuropathy Transient ischemic attack (TIA) 2-3 YEARS AGO CAME TO [facility]- NO ISSUES SINCE Surgical History H/O bilateral mastectomy (Resolved) History of arthroscopy RT KNEE History of bilateral tubal ligation History of cataract surgery RT/LEFT History of colonoscopy History of tooth extraction Social History Preferred Language: Bahraini Communication Ability: Effective Visual Impairment: No Limitations Hearing Ability: Normal Education Technician Required: No Beliefs That Will Affect Care: None marital status: Current Living Situation: Spouse current occupational status: retired Feels Safe at Home: Yes Smoking Status: Former smoker Second Hand Exposure: No ; Hx Alcohol Use: No Hx Substance Use: No Review of Systems A total of 10 systems reviewed and were otherwise negative Physical Exam Vital Signs Vital Signs - 24 hr 07/12/19 01:29 07/12/19 02:57 07/12/19 02:58 Temperature 37.5 C Temperature Source Oral Pulse Rate 87 71 72 Pulse Rate from SpO2 Sensor 71 71 Pulse Rhythm Regular Pulse Strength Normal Respiratory Rate 19 14 15 Respiratory Effort / Characteristics Non-Labored Respiratory Depth Normal Respiratory Pattern Regular Blood Pressure 138/69 102/53 L Blood Pressure Mean 92 69 Blood Pressure Position Sitting Pulse Oximetry 93 91 92 Oxygen Delivery Method Room Air Oxygen Flow Rate Sepsis Recent Fever Within 48 Hours No Sepsis Action Taken by Nursing No Action Required 07/12/19 03:00 07/12/19 03:01 07/12/19 03:27 Temperature Temperature Source Pulse Rate 72 81 71 Pulse Rate from SpO2 Sensor 74 80 70 Pulse Rhythm Pulse Strength Respiratory Rate 13 12 14 Respiratory Effort / Characteristics Respiratory Depth Respiratory Pattern Blood Pressure 102/62 100/61 Blood Pressure Mean 73 74 Blood Pressure Position Pulse Oximetry 94 94 95 Oxygen Delivery Method Nasal Cannula Nasal Cannula Nasal Cannula Oxygen Flow Rate 2 2 2 Sepsis Recent Fever Within 48 Hours Sepsis Action Taken by Nursing 07/12/19 03:28 07/12/19 03:30 07/12/19 03:31 Temperature Temperature Source Pulse Rate 68 67 67 Pulse Rate from SpO2 Sensor 69 67 68 Pulse Rhythm Pulse Strength Respiratory Rate 19 12 14 Respiratory Effort / Characteristics Respiratory Depth Respiratory Pattern Blood Pressure 100/57 L Blood Pressure Mean 67 Blood Pressure Position Pulse Oximetry 94 94 93 Oxygen Delivery Method Nasal Cannula Nasal Cannula Nasal Cannula Oxygen Flow Rate 2 2 2 Sepsis Recent Fever Within 48 Hours Sepsis Action Taken by Nursing 07/12/19 03:45 07/12/19 03:46 Temperature Temperature Source Pulse Rate 69 68 Pulse Rate from SpO2 Sensor 69 68 Pulse Rhythm Pulse Strength Respiratory Rate 16 15 Respiratory Effort / Characteristics Respiratory Depth Respiratory Pattern Blood Pressure 100/55 L Blood Pressure Mean 59 Blood Pressure Position Pulse Oximetry 93 92 Oxygen Delivery Method Oxygen Flow Rate Sepsis Recent Fever Within 48 Hours Sepsis Action Taken by Nursing VITALS: Vitals are noted on the nurse's note and reviewed by myself. Vital signs stable. GENERAL: Well-developed, well-nourished, white female who is in mild discomfort secondary to her stated complaint. Patient is cooperative with the examination. HEAD: Normocephalic atraumatic. NECK: Supple without nuchal rigidity. No lymphadenopathy. No thyromegaly. Cervical spine is nontender. HEART: Regular rate and rhythm without murmurs gallops or rubs. LUNGS: Clear to auscultation bilaterally without wheezes, rales or rhonchi. No retractions or accessory muscle use. BACK: No significant reproducible tenderness, rash, or lesion. Patient identifies reported discomfort roughly just to the right of the 10th through 12th thoracic vertebrae ABDOMEN: Positive normal bowel sounds x 4. Soft, nontender, without masses or organomegaly. No guarding or rebound tenderness. MUSCULOSKELETAL: No muscle atrophy, erythema, or edema noted. Full range of motion in all extremities. Course Administered Medications Discontinued Medications Aspirin (Aspirin) 324 mg PO NOW STA Stop: 07/12/19 02:55 Last Admin: 07/12/19 03:00 Dose: 324 mg Documented by: [id number] Hydromorphone HCl (Dilaudid) 0.5 mg IV NOW STA Stop: 07/12/19 02:04 Last Admin: 07/12/19 02:13 Dose: 0.5 mg Documented by: [id number] Acetaminophen (Ofirmev) 1,000 mg in 100 mls @ 400 mls/hr IV NOW STA Stop: 07/12/19 02:17 Last Infusion: 07/12/19 02:28 Dose: 0 mls/hr Documented by: [id number] Admin: 07/12/19 02:13 Dose: 400 mls/hr Documented by: [id number] Lidocaine (Lidoderm 5%) 1 patch TD NOW STA Stop: 07/12/19 02:04 Last Admin: 07/12/19 02:13 Dose: 1 patch Documented by: [id number] Nitroglycerin (Nitro-Bid 2%) 1 inch EXT NOW ONE Stop: 07/12/19 02:55 Last Admin: 07/12/19 03:02 Dose: 1 inch Documented by: [id number] Ondansetron HCl (Zofran) 4 mg IV NOW STA Stop: 07/12/19 02:04 Last Admin: 07/12/19 02:13 Dose: 4 mg Documented by: [id number] Medical Decision Making Differential Diagnosis Differential diagnosis includes, but is not limited to: Sprain, strain, fracture, dislocation, subluxation, contusion, myocardial infarction, dysrhythmia, pericarditis, pneumothorax, aortic aneurysm/dissection, DVT/PE, anxiety, GERD, PUD, electrolyte imbalance, thyroid disorder, pneumonia, bronchitis, pancreatitis, and others Laboratory Data Result diagrams: 07/12/19 01:50 07/12/19 01:50 Lab Results 07/12/19 07/12/19 07/12/19 Range/Units 01:50 01:50 01:50 WBC 9.04 (4.8-10.8) K/uL RBC 4.58 (4.2-5.4) M/uL Hgb 14.1 (12.0-16.0) g/dL Hct 41.4 (37-47) % MCV 90.4 (80-100) fL MCH 30.8 (25-34) pg MCHC 34.1 (32-36) g/dL RDW Std Deviation 41.1 (36.4-46.3) fL RDW Coeff of Anjana 12.4 (11.5-14.5) % Plt Count 248 (130-400) K/uL MPV 9.4 (7.4-10.4) fL Immature Gran % (Auto) 0.1 % Neut % (Auto) 68.9 % Lymph % (Auto) 18.6 % [place] % (Auto) 7.0 % Eos % (Auto) 4.8 % Baso % (Auto) 0.6 % Immature Gran # (Auto) 0.01 (0.00-0.02) K/uL Neut # (Auto) 6.24 (1.4-6.5) K/uL Lymph # (Auto) 1.68 (1.2-3.4) K/uL [place] # (Auto) 0.63 H (0.11-0.59) K/uL Eos # (Auto) 0.43 (0-0.5) K/uL Baso # (Auto) 0.05 (0-0.2) K/uL Sodium 140 (136-145) mmol/L Potassium 3.8 (3.5-5.1) mmol/L Chloride 104 (98-107) mmol/L Carbon Dioxide 32 (21-32) mmol/L Anion Gap 4.0 (3-11) BUN 12 (7-18) mg/dl Creatinine 1.07 (0.6-1.2) mg/dl Est Cr Clr Drug Dosing 57.3 ml/min Est GFR ( Amer) 62.7 Est GFR (Non-Af Amer) 54.1 BUN/Creatinine Ratio 10.8 (10-20) Glucose 105 H (70-99) mg/dl Calcium 9.0 (8.5-10.1) mg/dl Magnesium 2.0 (1.8-2.4) mg/dl Total Bilirubin 0.9 (0.2-1) mg/dl AST 13 L (15-37) U/L ALT 18 (12-78) U/L Alkaline Phosphatase 77 (45-117) U/L Troponin I 0.130 H* (0-0.045) ng/ml Total Protein 7.5 (6.4-8.2) gm/dl Albumin 3.8 (3.4-5.0) gm/dl Globulin 3.7 (2.5-4.0) gm/dl Albumin/Globulin Ratio 1.0 (0.9-2) Lipase 113 (73-393) U/L TSH 1.520 (0.300-4.500) uIu/ml Lyme Disease IgG Ab Negative (Negative) Lyme Disease IgM Ab Negative (Negative) ECG Data Additional Comments: Normal sinus rhythm @[address] elevation Normal ECG When compared with ECG of 20-APR-2019 12:30, Criteria for Inferior infarct are no longer Present MDM Narrative Physical exam and history were performed. Nursing notes, EMR, and Medication List were personally reviewed. Patient appears to have right-sided midthoracic back pain for the past several days. The patient was seen earlier this week with CT angiogram and blood work that was nondiagnostic. IV access was established and labs were obtained. The patient was given IV Dilaudid, IV Zofran, and IV Tylenol. Lidoderm patch was placed in the area of patient maximum discomfort. The patient's blood work is as above and was reviewed. He does not have a significantly elevated white blood cell count, gross anemia, bandemia, or significant electrolyte imbalance. Lipase and transaminases were nondiagnostic. The patient's troponin is elevated at 0.130, which is new. EKG is as above. She was placed on the environmental monitoring technician, and did remain in normal sinus rhythm on the environmental monitoring technician. The case was discussed with my attending physician, Dr. Hinojosa, who also independently evaluated the patient. We did provide the patient chewable aspirin and Nitropaste was applied. We overall do not feel the patient is well for discharge home, and the case was discussed with the on-call hospitalist. Please see their dictation for further patient course, plan, and disposition. The chart was completed utilizing [email or web address] Speech Voice Recognition Software. Grammatical errors, random word insertions, pronoun errors, and incomplete sentences are an occasional consequence of this system due to software limitations, ambient noise, and hardware issues. Any formal questions or concerns about the content, text, or information contained within the body of t his dictation should be directly addressed to the provider for clarification. . Impression & Plan Elevated troponin, Acute right-sided back pain, Nausea and vomiting Discharge Plan Visit Data *Final* Discharge Date/Time: 07/12/19 05:37 Chief Complaint: Chest/Rib Injury Stated Complaint: SEVERE PAIN IN RIGHT LUNG AREA ED Provider: Joleen Hinojosa ED Midlevel Provider: Bebo Cardozo Discharge Problem: Elevated troponin, Acute right-sided back pain, Nausea and vomiting Patient Disposition: Admitted As Inpatient Discharge Instructions Interventions: ED Discharge Assessment Last Done: 07/12/19 05:37 Discharge Problem: Acute right-sided back pain Qualifiers: Back pain location: thoracic back pain Qualified Code(s): M54.6 - Pain in thoracic spine Nausea and vomiting Qualifiers: Vomiting type: unspecified Vomiting Intractability: non-intractable Qualified Code(s): R11.2 - Nausea with vomiting, unspecified
[2019-07-12] MEDS: ACETAMINOPHEN 325 MG TAB PO PRN ×3 (08:57→20:50)
[2019-07-12] MEDS: GABAPENTIN 100 MG CAP PO SCH (08:58)
[2019-07-12] MEDS: ENOXAPARIN INJ 40 MG/0.4 ML SYR SQ SCH (08:58)
[2019-07-12] MEDS: CALCIUM 600MG + VIT D 400 IU TAB PO SCH (08:58)
[2019-07-12] MEDS: PANTOprazole 40 MG TAB PO SCH ×2 (08:58→20:51)
[2019-07-12] MEDS: LIDOCAINE 5% 1 PATCH TD SCH (09:56)
[2019-07-12] MEDS: DICLOFENAC SOD 1% GEL 100 GM TUBE EXT PRN ×2 (09:57→20:53)
[2019-07-12] MEDS: SERTRALINE HCL 100 MG TABLET PO SCH (09:57)
[2019-07-12] MEDS: ASPIRIN 81 MG ECTAB PO SCH (09:57)
[2019-07-12] MEDS: ROSUVASTATIN CALCIUM 10 MG TAB PO SCH (09:57)
[2019-07-12] MEDS: ANASTROZOLE 1 MG TAB PO SCH (09:57)
[2019-07-12] MEDS: LOSARTAN POTASSIUM 50 MG TAB PO SCH (09:57)
[2019-07-12] MEDS: MoRPHine SULFATE 2 MG/ML CARP IV PRN (12:09)
--- NOTE | 2019-07-12 17:45 | Cardiology Consultation ---
Date of Consultation July 12, 2019 Assessment & Plan (1) Acute right-sided back pain: Her right-sided back pain is almost certainly noncardiac. It has been sustained with no increase in troponin after admission, no electrocardiographic changes and the character is very atypical for coronary artery disease. I would treated as a local discomfort and not cardiac discomfort. (2) Elevated troponin: Her elevated troponin is worrisome. She has had a TIA detected in the past, she does have risk factors for coronary disease and although has not been diagnosed with that I would be surprised if she does have it. The cause of the elevated troponin and a decreasing pattern is probably demand ischemia and not an acute coronary event. Her blood pressure was not elevated on admission, therefore I do not have any good explanation for why she would have demand ischemia. She was probably under some stress related to the discomfort however that would generally resulted in hypertension which she did not have. I would not investigate her elevated troponin at this time however I think it would be prudent to perform a stress test at some point in the future, I do not think there is any urgency and it could be done as an outpatient. I would be surprised if we detected coronary artery disease. It probably would be prudent to continue aspirin and statin therapy. History of Present Illness Reason for Consultation: Abnormal troponin Attending Physician: Stef Brewer History of Present Illness Right posterior chest discomfort, continuous This is a 64-year-old woman with a history of asthma, GERD, hypertension hyperlipidemia as well as a TIA several years ago. She has not had any cardiac history to her knowledge. She presented with right back discomfort on July 12, 2019. Of note she presented to the emergency room on March 12, 2019 with right shoulder discomfort identified as a rotator cuff tear for which she had surgery on May 12, 2019. She evidently recovered from that however she returned with right back discomfort on July 10, 2019, she was treated in the emergency room and discharged. She then returned with 3 recurrent or continued discomfort on July 12, 2019. Which has been steady for several days, does not radiate to the anterior portion of her chest and does not radiate to the neck or left arm or left shoulder. In the emergency room she was noted to have a normal electrocardiogram on July 10, 2019 this admission, this was repeated several days later and remained normal. An echocardiogram on July 12, 2019 shows normal left ventricular size with a hyperdynamic left ventricle and no wall motion abnormalities. Her troponins however have been abnormal. On July 10, 2019 her troponin was undetectable, however on July 12, 2019 at 2 AM her troponin was 0.130, about 5 hours later was 0.094 and several hours after that was 0.075. It then returned to normal but was still 0.022 about 24 hours after her initial measurement. She is very specific that she has had no chest discomfort and other than the back discomfort has no cardiovascular symptoms since admission. Allergies Allergy/AdvReac Type Severity Reaction Status Date / Time latex Allergy Severe HIVES Verified 07/12/19 01:57 naproxen Allergy Intermediate RASH Verified 07/12/19 01:57 Home Medications Home Medications Medication Instructions Recorded Confirmed Type albuterol sulfate 2.5 mg INHALATION QID PRN 05/16/18 07/12/19 History aspirin 81 mg PO QAM 05/16/18 07/12/19 History fluticasone furoate-vilanterol 1 puff INHALATION QAM 05/16/18 07/12/19 History omeprazole 20 mg PO BID 05/16/18 07/12/19 History zafirlukast 20 mg PO BID 05/16/18 07/12/19 History Calcium 600 + D(3) 2 cap PO QAM 12/13/18 07/12/19 History sertraline 100 mg PO QAM 04/20/19 07/12/19 History lorazepam 0.5 mg tablet 0.5 mg PO DAILY PRN #30 tab 05/10/19 07/12/19 Rx gabapentin 100 mg capsule See Rx Instructions .ROUTE 05/24/19 07/12/19 History .COMPLEX #360 cap losartan 50 mg tablet 50 mg PO DAILY #90 tab 05/24/19 07/12/19 History rosuvastatin 5 mg tablet 5 mg PO DAILY #90 tab 05/24/19 07/12/19 History trazodone 100 mg tablet 200 mg PO HS #180 tab 05/24/19 07/12/19 History tramadol 50 mg tablet 50 mg PO Q6H PRN #180 tab 06/09/19 07/12/19 Rx anastrozole 1 mg tablet 1 mg PO DAILY #90 tab 07/05/19 07/12/19 Rx albuterol sulfate [Ventolin HFA] 2 puffs INH QID PRN 07/10/19 07/12/19 History diclofenac sodium 4 gm TOP QID PRN 07/10/19 07/12/19 History oxycodone 5 - 10 mg PO Q4H PRN #8 tab 07/10/19 07/12/19 Rx oxycodone-acetaminophen 1 tab PO Q6H PRN 07/10/19 07/12/19 History Patient History Medical History Anxiety Asthma (Chronic) USES INHALER ONCE A DAY- FOLLOWS WITH DR. THRASHER- WITH [facility]- LAST ATTACK 2 YRS AGO Breast cancer (Chronic) RESOLVED 6 YRS AGO GERD (gastroesophageal reflux disease) HTN (hypertension) (Chronic) Hyperlipidemia Osteoarthritis Peripheral neuropathy Transient ischemic attack (TIA) 2-3 YEARS AGO CAME TO [facility]- NO ISSUES SINCE Surgical History H/O bilateral mastectomy (Resolved) History of arthroscopy RT KNEE History of bilateral tubal ligation History of cataract surgery RT/LEFT History of colonoscopy History of tooth extraction Social History Preferred Language: Eritrean Communication Ability: Effective Visual Impairment: No Limitations Hearing Ability: Normal [place] Conservationist Required: No Beliefs That Will Affect Care: None marital status: Current Living Situation: Spouse current occupational status: retired Feels Safe at Home: Yes Smoking Status: Former smoker Second Hand Exposure: No ; Hx Alcohol Use: No Hx Substance Use: No Review of Systems Review of Systems: All systems reviewed & are unremarkable except as noted in HPI & below Physical Exam Physical Exam: Constitutional: Alert, cooperative and in no distress. HEENT: Unremarkable Neck: No jugular venous distention, carotid pulses are normal and equal bilaterally without bruits. Pulmonary: Clear to auscultation bilaterally. Cardiac: Regular rhythm with no murmur, gallop or rub. Abdomen: Soft, nontender with normal bowel sounds. Extremities: No edema. Distal pulses intact. Neurologic: No focal findings. Gait is steady. Skin: No rash, ecchymoses or petechiae. Results & Data Vital Signs (Past 12 Hours) Vital Signs Temp Pulse Resp BP Pulse Ox 07/12/19 15:43 36.8 C 61 18 119/72 92 07/12/19 11:46 36.5 C 57 L 17 107/66 91 07/12/19 08:09 36.7 C 76 106/68 90 07/12/19 06:00 36.6 C 69 129/73 90 Diagnostic Findings I reviewed her echocardiogram and her electrocardiogram which are noted in the HPI. Telemetry shows sinus rhythm with no abnormality. PG Care Time/CCT Total # of Minutes Spent Total Time Spent with Patient: Total time spent is greater than 50% in coordination of care (as documented) at patient's floor/unit and/or counseling patient: (1) Acute right-sided back pain Back pain location: thoracic back pain Qualified Code(s): M54.6 - Pain in thoracic spine
[2019-07-12] MEDS: GABAPENTIN 300 MG CAP PO SCH (20:50)
[2019-07-12] MEDS: MONTELUKAST SODIUM 10 MG TABLET PO SCH (20:51)
[2019-07-12] MEDS: BUDESONIDE/FORMOTEROL FUMARATE 80/4.5 60 PUFFS/INHALER INH SCH (20:51)
[2019-07-12] MEDS: TRAZODONE HCL 100 MG TAB PO SCH (20:51)
[2019-07-13] MEDS: ACETAMINOPHEN 325 MG TAB PO PRN ×3 (09:14→18:52)
[2019-07-13] MEDS: LOSARTAN POTASSIUM 50 MG TAB PO SCH (09:15)
[2019-07-13] MEDS: PANTOprazole 40 MG TAB PO SCH ×2 (09:16→20:20)
[2019-07-13] MEDS: DICLOFENAC SOD 1% GEL 100 GM TUBE EXT PRN ×3 (09:16→18:52)
[2019-07-13] MEDS: BUDESONIDE/FORMOTEROL FUMARATE 80/4.5 60 PUFFS/INHALER INH SCH ×2 (09:16→20:22)
[2019-07-13] MEDS: ENOXAPARIN INJ 40 MG/0.4 ML SYR SQ SCH (09:17)
[2019-07-13] MEDS: GABAPENTIN 100 MG CAP PO SCH (09:17)
[2019-07-13] MEDS: LIDOCAINE 5% 1 PATCH TD SCH (09:17)
[2019-07-13] MEDS: ROSUVASTATIN CALCIUM 10 MG TAB PO SCH (09:18)
[2019-07-13] MEDS: ANASTROZOLE 1 MG TAB PO SCH (09:18)
[2019-07-13] MEDS: ASPIRIN 81 MG ECTAB PO SCH (09:18)
[2019-07-13] MEDS: CALCIUM 600MG + VIT D 400 IU TAB PO SCH (09:19)
[2019-07-13] MEDS: SERTRALINE HCL 100 MG TABLET PO SCH (09:19)
--- NOTE | 2019-07-13 10:51 | Cardiology Progress Note ---
Date of Service July 13, 2019 Assessment & Plan (1) Acute right-sided back pain: Her right-sided back pain is almost certainly noncardiac. It has been sustained with no increase in troponin after admission, no electrocardiographic changes and the character is very atypical for coronary artery disease. I would treat her back discomfort as a local discomfort and not cardiac discomfort. (2) Elevated troponin: Her elevated troponin is worrisome. She has had a TIA detected in the past, she does have risk factors for coronary disease and although has not been diagnosed with that I would not be surprised if she does have coronary artery disease. The specific cause of the elevated troponin an in d a decreasing pattern is probably demand ischemia and not an acute coronary event. Her blood pressure was not elevated on admission, therefore I do not have any good explanation for why she would have demand ischemia. She was probably under some stress related to the discomfort however that would generally resulted in hypertension which she did not have. I would not investigate her elevated troponin at this time however I think it would be prudent to perform a stress test at some point in the future, I do not think there is any urgency and it could be done as an outpatient although it might be better to do before she goes home. She tells me that she probably can walk on a treadmill which I would prefer to do rather than a pharmacologic test. I would not be surprised if we detected coronary artery disease. It probably would be prudent to continue aspirin and statin therapy for now. Subjective She continues to have right back pain similar to admission, she confirms again that she has no anterior chest discomfort. Physical Exam Physical Exam: Constitutional: Alert, cooperative and in no distress. Pulmonary: Clear to auscultation bilaterally. Cardiac: Regular rhythm with no murmur, gallop or rub. Abdomen: Soft, nontender with normal bowel sounds. Extremities: No edema. Skin: No rash, ecchymoses or petechiae. Results & Data Vital Signs (Past 12 Hours) Vital Signs Temp Pulse Pulse Resp BP Pulse Ox 07/13/19 07:27 36.8 C 63 18 110/68 93 07/13/19 04:03 36.5 C 69 18 105/70 93 07/12/19 23:49 36.5 C 66 18 107/64 91 Diagnostic Findings Telemetry: Sinus rhythm and sinus bradycardia, no arrhythmias PG Care Time/CCT Total # of Minutes Spent Total Time Spent with Patient: Total time spent is greater than 50% in coordination of care (as documented) at patient's floor/unit and/or counseling patient: (1) Acute right-sided back pain Back pain location: thoracic back pain Qualified Code(s): M54.6 - Pain in thoracic spine
[2019-07-13] MEDS: TRAZODONE HCL 100 MG TAB PO SCH (20:20)
[2019-07-13] MEDS: MONTELUKAST SODIUM 10 MG TABLET PO SCH (20:22)
[2019-07-13] MEDS: GABAPENTIN 300 MG CAP PO SCH (20:22)
--- NOTE | 2019-07-13 22:29 | Hospitalist Progress Note ---
Date of Service July 13, 2019 Assessment & Plan (1) Acute right-sided thoracic back pain: Suspect component of musculoskeletal pain Likely related to right shoulder repair, perhaps a component of frozen shoulder with compensation (overuse) of other muscles) will continue: -Lidoderm patch -Tylenol PRN -Voltaren gel await input from bessy (2) Elevated troponin: No acute EKG changes. Patient risk factors include HTN, NLP, prior TIA. She does admit to some exertional dyspnea that has worsened over the years. Denies exertional chest pain. Troponin = 0.13 -Cardiac monitoring -Troponin peaked and now is normal. -will require cardiac eval: stress either inpatient vs outpatient. -Cardiology consultation appreciated -Continue ASA, Crestor, Losartan (3) Breast cancer: S/p mastectomy. -Managed with anastrazole, continue (4) Dyslipidemia: Chronic. Stable -Continue Crestor - Increase to 10mg (5) Esophageal reflux: Chronic. Stable -Continue Omeprazole (6) Hypertension: Blood pressure stable -Continue Losartan -Continue to monitor (7) Vitamin D deficiency: Chronic. Stable -Continue Calcium/Vitamin D (8) Asthma: Chronic. Stable. No wheezing on exam -Continue Albuterol, Zafirlukast Subjective Patient reports right sided shoulder pain and back pain. Mild improvement, she stills rates it as moderate. She would like to see ortho before discharge. Review of Systems Review of Systems: All systems reviewed & are unremarkable except as noted in HPI & below Physical Exam Physical Exam: General: patient resting comfortably, NAD, non-toxic in appearance, AA&O x 4 Skin: warm, dry, intact, no rashes or lesions HEENT: NC/AT, PERRL, EOMI, anicteric sclera, conjunctiva without injection, external ear normal to inspection and nontender, nares patent, moist mucus membranes, dentition intact, no oropharyngeal lesions, neck supple, trachea midline, no LAD, no thyromegaly, no JVD Heart: +S1/S2, regular, 3/6 KATHRYN at 2nd right ICS with radiation to carotids, no reproducible chest wall or rib pain, no rash on chest or back Lungs: equal air entry bilaterally, no rales/rhonchi/wheezes Abd: +BS, soft, NT/ND, no masses/organomegaly/ascites Ext: warm, 2+ pulses in UE/LE bilaterally, no clubbing/cyanosis or edema Neuro: nonfocal, patient AA&O x 4, speech intact, no facial droop, moving all extremities on command with equal strength 5/5 Results & Data Vital Signs (Past 12 Hours) Vital Signs Temp Pulse Pulse Resp BP Pulse Ox 07/13/19 19:14 36.8 C 65 20 124/78 94 07/13/19 16:00 74 07/13/19 15:26 36.8 C 79 18 116/72 91 07/13/19 11:48 36.7 C 70 18 120/77 93 PG Care Time/CCT Total # of Minutes Spent Total Time Spent with Patient: Total time spent is greater than 50% in coordination of care (as documented) at patient's floor/unit and/or counseling patient: (1) Breast cancer Breast location: unspecified site of breast (2) Esophageal reflux Esophagitis presence: esophagitis presence not specified Qualified Code(s): K21.9 - Gastro-esophageal reflux disease without esophagitis (3) Hypertension Hypertension type: essential hypertension Qualified Code(s): I10 - Essential (primary) hypertension
[2019-07-14] MEDS: ACETAMINOPHEN 325 MG TAB PO PRN ×3 (00:27→19:27)
[2019-07-14] MEDS: DICLOFENAC SOD 1% GEL 100 GM TUBE EXT PRN (08:35)
[2019-07-14] MEDS: ENOXAPARIN INJ 40 MG/0.4 ML SYR SQ SCH (08:35)
[2019-07-14] MEDS: LIDOCAINE 5% 1 PATCH TD SCH (08:36)
--- NOTE | 2019-07-14 08:56 | XRay Report ---
XR thoracic spine 3V routine CLINICAL HISTORY: 64 years-old Female presenting with back pain. TECHNIQUE: 3 views of the thoracic spine were obtained. COMPARISON: 01/17/2017 and CTA chest from 07/10/2019. FINDINGS: No scoliosis. Normal thoracic kyphosis. Vertebral bodies maintain normal height and alignment. Interv ertebral disc heights preserved. Disc osteophyte complexes at T11-12 and T9-10. No radiographic evide nce of osseous neural foraminal narrowing. No compression deformity or subluxation. Evaluation of the cervicothoracic junction limited by overlapping osseous structures. Degenerative changes in the cerv ical spine noted. IMPRESSION: 1. Focal degenerative changes at T9-T10 and T11-12. 2. No radiographic evidence of acute osseous injury. Electronically signed by: Carlos Crane M.D. 07/14/2019 8:55 AM
[2019-07-14 09:05] LABS: Codeine Urine NEGATIVE NG/ML (CUTOFF=50); Hydrocodone Urine NEGATIVE NG/ML (CUTOFF=50); Hydromor Urine 233 NG/ML (CUTOFF=50); Morphine Urine 228 NG/ML (CUTOFF=50); Norhydrocodone Conf Ur NEGATIVE NG/ML (CUTOFF=50); Noroxycodone Urine 672 NG/ML (CUTOFF=50); Oxycodone Urine 847 NG/ML (CUTOFF=50); Oxymorph Urine 498 NG/ML (CUTOFF=50)
[2019-07-14] MEDS ORDERED: PERFLUTREN LIPID MICROSPHERE (DEFINITY) IV ONE (10:18)
[2019-07-14] MEDS: MoRPHine SULFATE 2 MG/ML CARP IV PRN (11:29)
[2019-07-14 14:11] LABS: Basophils # (auto) 0.03 K/uL (0-0.2); Basophils % (auto) 0.5 %; Eosinophils # (auto) 0.44 K/uL (0-0.5); Eosinophils % (auto) 7.3 %; Hematocrit (blood only) 41.5 % (37-47); Hemoglobin 13.7 g/dL (12.0-16.0); Immature Granulocytes # (auto) 0.01 K/uL (0.00-0.02); Immature Granulocytes % (auto) 0.2 %; Lymphocytes # (auto) 1.47 K/uL (1.2-3.4); Lymphocytes % (auto) 24.5 %; Mean Corpuscular Hemoglobin 30.2 pg (25-34); Mean Corpuscular Volume 91.6 fL (80-100); Mean Platelet Volume 9.6 fL (7.4-10.4); Monocytes # (auto) 0.43 K/uL (0.11-0.59); Monocytes % (auto) 7.2 %; Neutrophils # (auto) 3.61 K/uL (1.4-6.5); Neutrophils % (auto) 60.3 %; Platelet Count 202 K/uL (130-400); RDW Coefficient of Variation 12.6 % (11.5-14.5); RDW Standard Deviation 42.6 fL (36.4-46.3); Red Blood Count 4.53 M/uL (4.2-5.4); White Blood Count 5.99 K/uL (4.8-10.8)
[2019-07-14] MEDS: ROSUVASTATIN CALCIUM 10 MG TAB PO SCH (14:19)
[2019-07-14] MEDS: SERTRALINE HCL 100 MG TABLET PO SCH (14:19)
[2019-07-14] MEDS: LOSARTAN POTASSIUM 50 MG TAB PO SCH (14:19)
[2019-07-14] MEDS: GABAPENTIN 100 MG CAP PO SCH (14:19)
[2019-07-14] MEDS: ASPIRIN 81 MG ECTAB PO SCH (14:19)
[2019-07-14] MEDS: CALCIUM 600MG + VIT D 400 IU TAB PO SCH (14:20)
[2019-07-14] MEDS: PANTOprazole 40 MG TAB PO SCH ×2 (14:20→20:29)
[2019-07-14] MEDS: BUDESONIDE/FORMOTEROL FUMARATE 80/4.5 60 PUFFS/INHALER INH SCH ×2 (14:20→20:30)
[2019-07-14] MEDS: ANASTROZOLE 1 MG TAB PO SCH (14:20)
--- NOTE | 2019-07-14 14:34 | Orthopedic Consultation ---
Date of Consultation July 14, 2019 Assessment & Plan (1) History of repair of right rotator cuff: She is not having much back pain at this point. I did look at the CT scan of her lungs and was able to get a good view of her thoracic spine. She does have several areas of degenerative disc disease but no signs of compression fracture or any significant pathology. Fortunately her back pain has resolved. She is having some right shoulder pain. I examined her shoulder and talked with her. This is the amount of shoulder pain I would expect at 9 weeks from medium rotator cuff repair. Will take a full 6 months for all of her motion to return. I do not see any signs of a frozen shoulder. She can start back up with physical therapy when she returns home. She has a scheduled appointment to see me in mid July for standard follow-up for her right shoulder. She is orthopedically stable for discharge to home when medically ready. I asked her if she would like to go home on any pain medications and she was unsure at this time. She said she wanted to talk about it with the hospitalist. Present on Admission?: Yes History of Present Illness Reason for Consultation: Right low back pain and right shoulder pain Attending Physician: Stef Brewer History of Present Illness Samia is a pleasant 64-year-old female who I did a right shoulder arthroscopic rotator cuff repair on May 122018. She was doing fairly well postoperatively. About a week ago she began having severe mid back pain. The pain radiated anteriorly over her chest. She went to the emergency room and was treated conservatively. Unfortunately her pain only worsened. She came back to the hospital and was admitted to the hospitalist service. Complete work-up including renal work-up, pulmonary work-up, and cardiac work-up have been negative. Overall her back pain is much better. She is now having some right shoulder pain. She says her right shoulder is a little bit more bothersome than when she first came into the hospital but is certainly tolerable. She has been doing physical therapy on her shoulder twice a week but has not done in the past week due to her hospitalization. Orthopedics has been consulted to evaluate and treat. Allergies Allergy/AdvReac Type Severity Reaction Status Date / Time latex Allergy Severe HIVES Verified 07/12/19 01:57 naproxen Allergy Intermediate RASH Verified 07/12/19 01:57 Home Medications Home Medications Medication Instructions Recorded Confirmed Type albuterol sulfate 2.5 mg INHALATION QID PRN 05/16/18 07/12/19 History aspirin 81 mg PO QAM 05/16/18 07/12/19 History fluticasone furoate-vilanterol 1 puff INHALATION QAM 05/16/18 07/12/19 History omeprazole 20 mg PO BID 05/16/18 07/12/19 History zafirlukast 20 mg PO BID 05/16/18 07/12/19 History Calcium 600 + D(3) 2 cap PO QAM 12/13/18 07/12/19 History sertraline 100 mg PO QAM 04/20/19 07/12/19 History lorazepam 0.5 mg tablet 0.5 mg PO DAILY PRN #30 tab 05/10/19 07/12/19 Rx gabapentin 100 mg capsule See Rx Instructions .ROUTE 05/24/19 07/12/19 History .COMPLEX #360 cap losartan 50 mg tablet 50 mg PO DAILY #90 tab 05/24/19 07/12/19 History rosuvastatin 5 mg tablet 5 mg PO DAILY #90 tab 05/24/19 07/12/19 History trazodone 100 mg tablet 200 mg PO HS #180 tab 05/24/19 07/12/19 History tramadol 50 mg tablet 50 mg PO Q6H PRN #180 tab 06/09/19 07/12/19 Rx anastrozole 1 mg tablet 1 mg PO DAILY #90 tab 07/05/19 07/12/19 Rx albuterol sulfate [Ventolin HFA] 2 puffs INH QID PRN 07/10/19 07/12/19 History diclofenac sodium 4 gm TOP QID PRN 07/10/19 07/12/19 History oxycodone 5 - 10 mg PO Q4H PRN #8 tab 07/10/19 07/12/19 Rx oxycodone-acetaminophen 1 tab PO Q6H PRN 07/10/19 07/12/19 History Patient History Medical History Anxiety Asthma (Chronic) USES INHALER ONCE A DAY- FOLLOWS WITH DR. THRASHER- WITH [facility]- LAST ATTACK 2 YRS AGO Breast cancer (Chronic) RESOLVED 6 YRS AGO GERD (gastroesophageal reflux disease) HTN (hypertension) (Chronic) Hyperlipidemia Osteoarthritis Peripheral neuropathy Transient ischemic attack (TIA) 2-3 YEARS AGO CAME TO [facility]- NO ISSUES SINCE Surgical History H/O bilateral mastectomy (Resolved) History of arthroscopy RT KNEE History of bilateral tubal ligation History of cataract surgery RT/LEFT History of colonoscopy History of tooth extraction Social History Preferred Language: Panamanian Communication Ability: Effective Visual Impairment: No Limitations Hearing Ability: Normal Battery Checker Required: No Beliefs That Will Affect Care: None marital status: Current Living Situation: Spouse current occupational status: retired Other Information That Helps Us Care for You: No Feels Safe at Home: Yes Smoking Status: Former smoker Second Hand Exposure: No ; Hx Alcohol Use: No Hx Substance Use: No Review of Systems Constitutional: no fever, no chills, no fatigue, no anorexia, no weight loss and no weight gain Ear, Nose, Mouth, Throat: no ear pain, no epistaxis, no sinus pain/pressure, no mouth lesions, no bleeding gums and no sore throat Respiratory: no cough, no dyspnea, no hemoptysis and no wheezing Cardiovascular: no chest pain, no palpitations, no syncope and no edema Gastrointestinal: no heartburn, no nausea, no vomiting and no change in bowel habits Genitourinary: no dysuria, no urinary frequency, no urinary incontinence, no hematuria and no flank pain Musculoskeletal: as per Subjective / HPI Integumentary: no rash and no lesions Neurologic: no paralysis, no tingling, no numbness, no tremor(s), no seizure- like activity, no dizziness, no headache(s), no confusion and no memory loss Psychiatric: no depression, no abnormal sleep pattern, no anxiety and no confusion Endocrine: no polydipsia, no polyphagia, no polyuria, no cold intolerance and no heat intolerance Hematologic / Lymphatic: no easy bleeding, no easy bruising, no coagulopathy and no lymphadenopathy Allergy / Immunological: no urticaria, no dyspnea and no rash Physical Exam Musculoskeletal: On physical examination of the right shoulder, the incisions are all well-healed. She has difficulty initiating forward elevation. Unable to passively elevate her to about 100 degrees forward elevation 80 degrees of abduction and 10 degrees of external rotation. She is little sore and range of motion. She is not having any low back pain at this point. It seems to have mostly resolved. Results & Data Vital Signs (Past 12 Hours) Vital Signs Temp Pulse Resp BP BP Pulse Ox 07/14/19 11:28 36.5 C 63 20 147/83 H 96 07/14/19 07:34 36.5 C 74 19 175/108 H 165/93 H 95 07/14/19 04:15 36.9 C 73 16 138/81 93 PG Care Time/CCT Total # of Minutes Spent Total Time Spent with Patient: Total time spent is greater than 50% in coordination of care (as documented) at patient's floor/unit and/or counseling patient:
--- NOTE | 2019-07-14 15:06 | Cardiology Progress Note ---
Date of Service July 14, 2019 Assessment & Plan (1) Acute right-sided back pain: Her right-sided back pain is almost certainly noncardiac. It has been sustained with no increase in troponin after admission, no electrocardiographic changes and the character is very atypical for coronary artery disease. I would treat her back discomfort as a local discomfort and not cardiac discomfort. (2) Elevated troponin: Her elevated troponin on admission is worrisome. She has had a TIA detected in the past, she does have risk factors for coronary disease and although has not been diagnosed with coronary artery disease in the past her current stress test suggest that she does have it. The specific cause of the elevated troponin in a decreasing pattern following admission is probably demand ischemia and not an acute coronary event. I do not see any clear indication to perform catheterization, we know she has carotid disease and I believe she has coronary disease and I would treat her with medical management since she is asymptomatic. If she develops symptoms then we may have to alter this approach. I would continue aspirin therapy and I would go up on her Crestor, which could be done as an outpatient. (3) Aortic valve vegetation: There is a possibility that she has an aortic valve vegetation. This could be an artifact but it is worrisome, however I do not see any indication that she has sepsis. Her white count was normal several days ago, she has not been febrile but has been on aspirin. She does have the back and the shoulder discomfort. I am going to draw another blood count, sed rate and blood cultures. If these are negative I would not pursue further evaluation, the next step would be transesophageal echocardiography or a repeat transthoracic echo with extra imaging of the valve. Subjective She still has some right sided back pain however that has improved. She had quite severe right shoulder pain this morning, that too has improved. She has had no anterior chest discomfort. Physical Exam Physical Exam: Constitutional: Alert, cooperative and in no distress. Pulmonary: Clear to auscultation bilaterally. Cardiac: Regular rhythm with no murmur, gallop or rub. Abdomen: Soft, nontender with normal bowel sounds. Extremities: No edema. Skin: No rash, ecchymoses or petechiae. Results & Data Vital Signs (Past 12 Hours) Vital Signs Temp Pulse Resp BP BP Pulse Ox 07/14/19 11:28 36.5 C 63 20 147/83 H 96 07/14/19 07:34 36.5 C 74 19 175/108 H 165/93 H 95 07/14/19 04:15 36.9 C 73 16 138/81 93 Laboratory Results Abnormal lab results 07/12/19 07/14/19 Range/Units 04:55 14:00 ESR 24 H (0-21) mm/hr Ur Morphine (GC/MS) 228 A (CUTOFF=50) NG/ML Ur Noroxycodone 672 A (CUTOFF=50) NG/ML Urine Oxycodone (GC/MS) 847 A (CUTOFF=50) NG/ML U Oxymorphone GC/MS 498 A (CUTOFF=50) NG/ML Ur Hydromorphone (GC/MS) 233 A (CUTOFF=50) NG/ML Diagnostic Findings Telemetry: Sinus rhythm in the 70s 80 bpm range. Stress echo: She exercised poorly, only several minutes, and the test was suggestive of coronary disease although not necessarily diagnostic at that workload. In addition a possible abnormality was identified on the aortic valve. PG Care Time/CCT Total # of Minutes Spent Total Time Spent with Patient: Total time spent is greater than 50% in coordination of care (as documented) at patient's floor/unit and/or counseling patient: (1) Acute right-sided back pain Back pain location: thoracic back pain Qualified Code(s): M54.6 - Pain in thoracic spine
--- NOTE | 2019-07-14 18:15 | Anesthesiology Consultation ---
Date of Service July 14, 2019 Assessment & Plan (1) Encounter for pre-operative examination: Chart Review Chart Review: Acceptable Risk for Surgery and Patient NOT seen in Pre Admission Testing Consults Requested none Cardiology note 07/14/2019: Assessment & Plan (1) Acute right-sided back pain: Her right-sided back pain is almost certainly noncardiac. It has been sustained with no increase in troponin after admission, no electrocardiographic changes and the character is very atypical for coronary artery disease. I would treat her back discomfort as a local discomfort and not cardiac discomfort. (2) Elevated troponin: Her elevated troponin on admission is worrisome. She has had a TIA detected in the past, she does have risk factors for coronary disease and although has not been diagnosed with coronary artery disease in the past her current stress test suggest that she does have it. The specific cause of the elevated troponin in a decreasing pattern following admission is probably demand ischemia and not an acute coronary event. I do not see any clear indication to perform catheterization, we know she has carotid disease and I believe she has coronary disease and I would treat her with medical management since she is asymptomatic. If she develops symptoms then we may have to alter this approach. I would continue aspirin therapy and I would go up on her Crestor, which could be done as an outpatient. (3) Aortic valve vegetation: There is a possibility that she has an aortic valve vegetation. This could be an artifact but it is worrisome, however I do not see any indication that she has sepsis. Her white count was normal several days ago, she has not been febrile but has been on aspirin. She does have the back and the shoulder discomfort. I am going to draw another blood count, sed rate and blood cultures. If these are negative I would not pursue further evaluation, the next step would be transesophageal echocardiography or a repeat transthoracic echo with extra imaging of the valve. History Height/Weight Height: 5 ft 7 in Weight: 83 kg Allergies Allergy/AdvReac Type Severity Reaction Status Date / Time latex Allergy Severe HIVES Verified 07/12/19 01:57 naproxen Allergy Intermediate RASH Verified 07/12/19 01:57 Medications Home Medications Medication Instructions Recorded Confirmed Last Taken albuterol sulfate 2.5 mg INHALATION QID PRN 05/16/18 07/12/19 05/10/19 aspirin 81 mg PO QAM 05/16/18 07/12/19 07/11/19 fluticasone furoate-vilanterol 1 puff INHALATION QAM 05/16/18 07/12/19 05/11/19 omeprazole 20 mg PO BID 05/16/18 07/12/19 07/11/19 zafirlukast 20 mg PO BID 05/16/18 07/12/19 07/11/19 Calcium 600 + D(3) 2 cap PO QAM 12/13/18 07/12/19 07/11/19 sertraline 100 mg PO QAM 04/20/19 07/12/19 07/11/19 lorazepam 0.5 mg tablet 0.5 mg PO DAILY PRN #30 tab 05/10/19 07/12/19 05/12/19 06:00 gabapentin 100 mg capsule See Rx Instructions .ROUTE 05/24/19 07/12/19 07/11/19 .COMPLEX #360 cap losartan 50 mg tablet 50 mg PO DAILY #90 tab 05/24/19 07/12/19 07/11/19 rosuvastatin 5 mg tablet 5 mg PO DAILY #90 tab 05/24/19 07/12/19 07/11/19 trazodone 100 mg tablet 200 mg PO HS #180 tab 05/24/19 07/12/19 07/11/19 tramadol 50 mg tablet 50 mg PO Q6H PRN #180 tab 06/09/19 07/12/19 Unknown anastrozole 1 mg tablet 1 mg PO DAILY #90 tab 07/05/19 07/12/19 07/11/19 albuterol sulfate [Ventolin HFA] 2 puffs INH QID PRN 07/10/19 07/12/19 Unknown diclofenac sodium 4 gm TOP QID PRN 07/10/19 07/12/19 Unknown oxycodone 5 - 10 mg PO Q4H PRN #8 tab 07/10/19 07/12/19 07/12/19 oxycodone-acetaminophen 1 tab PO Q6H PRN 07/10/19 07/12/19 Unknown Active Medications Generic Name Dose Route Start Last Admin Trade Name Freq PRN Reason Stop Dose Admin Acetaminophen 650 mg 07/12/19 05:58 07/14/19 10:52 Tylenol PO 08/11/19 05:57 650 mg Q4H PRN Administration pain/fever Anastrozole 1 mg 07/12/19 09:00 07/14/19 14:20 Arimidex PO 08/11/19 08:59 1 mg DAILY ZONIA Administration Aspirin 81 mg 07/12/19 09:00 07/14/19 14:19 Ecotrin Ectab PO 08/11/19 08:59 81 mg QAM ZONIA Administration Budesonide/Formoterol Fumarate 2 puffs 07/12/19 21:00 07/14/19 14:20 Symbicort 80mcg/4.5mcg INH 08/11/19 20:59 2 puffs BID ZONIA Administration Diclofenac Sodium 4 gm 07/12/19 05:58 07/14/19 08:35 Voltaren 1% Top EXT 08/11/19 05:57 4 gm QID PRN Administration Pain Enoxaparin Sodium 40 mg 07/12/19 08:00 07/14/19 08:35 Lovenox SQ 08/11/19 07:59 40 mg Q24H ZONIA Administration Gabapentin 100 mg 07/12/19 09:00 07/14/19 14:19 Neurontin PO 08/11/19 08:59 100 mg QAM ZONIA Administration Gabapentin 300 mg 07/12/19 21:00 07/13/19 20:22 Neurontin PO 08/11/19 20:59 300 mg HS ZONIA Administration Lidocaine 1 patch 07/12/19 09:00 07/14/19 08:36 Lidoderm 5% TD 08/11/19 08:59 1 patch QAM ZONIA Administration Losartan Potassium 50 mg 07/12/19 09:00 07/14/19 14:19 Cozaar PO 08/11/19 08:59 50 mg DAILY ZONIA Administration Miscellaneous 1 ea 07/12/19 21:00 07/13/19 20:23 Remove Lidoderm Patch N/A 08/11/19 20:59 1 ea DAILY@2100 ZONIA Administration Montelukast Sodium 10 mg 07/12/19 21:00 07/13/19 20:22 Singulair PO 08/11/19 20:59 10 mg HS ZONIA Administration Morphine Sulfate 1 mg 07/12/19 05:58 07/14/19 11:29 Morphine Sulfate IV 07/26/19 05:57 1 mg Q2H PRN Administration Pain Multivitamins/Minerals 2 tab 07/12/19 09:00 07/14/19 14:20 Caltrate Plus PO 08/11/19 08:59 2 tab QAM ZONIA Administration Ondansetron HCl 4 mg 07/12/19 05:58 07/14/19 09:22 Zofran IV 08/11/19 05:57 4 mg Q6H PRN Administration Nausea Pantoprazole Sodium 40 mg 07/12/19 09:00 07/14/19 14:20 Protonix PO 08/11/19 08:59 40 mg BID ZONIA Administration Rosuvastatin Calcium 10 mg 07/12/19 09:00 07/14/19 14:19 Crestor PO 08/11/19 08:59 10 mg DAILY ZONIA Administration Sertraline HCl 100 mg 07/12/19 09:00 07/14/19 14:19 Zoloft PO 08/11/19 08:59 100 mg QAM ZONIA Administration Trazodone HCl 200 mg 07/12/19 21:00 07/13/19 20:20 Desyrel PO 08/11/19 20:59 200 mg HS ZONIA Administration Past Medical History Medical History (Updated 07/14/19 @ 18:10 by Marcelo Solares MD) Acute right-sided back pain (Acute) Anxiety Aortic valve vegetation Asthma (Chronic) USES INHALER ONCE A DAY- FOLLOWS WITH DR. THRASHER- WITH [facility]- LAST ATTACK 2 YRS AGO Breast cancer (Chronic) RESOLVED 6 YRS AGO Cerebrovascular disease (Acute) Elevated troponin (Acute) GERD (gastroesophageal reflux disease) Gilbert's syndrome (Acute) HTN (hypertension) (Chronic) Hyperlipidemia Osteoarthritis Peripheral neuropathy Sleep apnea (Acute) Transient ischemic attack (TIA) 2-3 YEARS AGO CAME TO [facility]- NO ISSUES SINCE Exercise / Class Metabolic Activity II 4-5 Yardwork/Stairs/Walk up hill Past Family History Family History Other Cancer Gallbladder disease Heart disease Hypertension Kidney stone Past Surgical History Surgical History (Updated 07/14/19 @ 18:12 by Marcelo Solares MD) H/O bilateral mastectomy (Resolved) History of arthroscopy RT KNEE History of bilateral tubal ligation History of cataract surgery RT/LEFT History of colonoscopy History of repair of right rotator cuff (~04/2019) LMA #4. Interscalene nerve block. History of tooth extraction Social History Smoking Status: Former smoker Hx Alcohol Use: No Hx Substance Use: No substance use type: does not use Physical Exam Vital Signs Last Vital Signs Temp 36.7 C 07/14/19 15:14 Pulse 70 07/14/19 15:14 Resp 20 07/14/19 15:14 BP 125/84 07/14/19 15:14 Pulse Ox 93 07/14/19 15:14 Testing Laboratory Results 07/14/19 13:44 07/12/19 01:50 Urine Color Yellow 07/12/19 04:55 Urine Appearance Clear (Clear) 07/12/19 04:55 Urine pH 6.0 (4.5-7.5) 07/12/19 04:55 Ur Specific [place] <= 1.005 (1.000-1.030) 07/12/19 04:55 Urine Protein Negative (Negative) 07/12/19 04:55 Urine Glucose (UA) Negative (Negative) 07/12/19 04:55 Urine Ketones Negative (Negative) 07/12/19 04:55 Urine Nitrite Negative (Negative) 07/12/19 04:55 Ur Leukocyte Esterase Negative (Negative) 07/12/19 04:55 Electrocardiogram Date: 07/12/19 Findings: + NSR @ (69) NSR. Normal ECG. Echocardiogram Date: 07/12/19 LV is hyperdynamic. LA is mildly dilated. RV systolic pressure is elevated at 30-40mmHg. Borderline aortic root dilatation. EF 65-70%. Grade 1 DD. Stress Test Date: 07/14/19 Stress echo: Mobile lesion of the AV concerning for vegetation. Very poor exercise tolerance. Abnormal stress echo suggestive of coronary artery disease and inducible ischemia.
[2019-07-14] MEDS: GABAPENTIN 300 MG CAP PO SCH (20:29)
[2019-07-14] MEDS: TRAZODONE HCL 100 MG TAB PO SCH (20:29)
[2019-07-14] MEDS: MONTELUKAST SODIUM 10 MG TABLET PO SCH (20:30)
--- NOTE | 2019-07-14 23:02 | Hospitalist Progress Note ---
Date of Service July 14, 2019 Assessment & Plan (1) Chest pain: Patient had positive stress test and troponin, initially felt like this was asymptomatic CAD. However, today she is stating that infact she truly does get chest pain. Will discuss with cardio if a cath is indicated at this time. Another issue is that there appears there may be vegetation in her heart. Will obtain a TIMMY as her ESR was mildly elevated. (2) Acute right-sided thoracic back pain: Suspect component of musculoskeletal pain Likely related to right shoulder repair, perhaps a component of frozen shoulder with compensation (overuse) of other muscles) will continue: -Lidoderm patch -Tylenol PRN -Voltaren gel Appreciate input from ortho (3) Elevated troponin: No acute EKG changes. Patient risk factors include HTN, NLP, prior TIA. She does admit to some exertional dyspnea that has worsened over the years. Denies exertional chest pain. Troponin = 0.13 -Cardiac monitoring -Troponin peaked and now is normal. -will require cardiac eval: stress either inpatient vs outpatient. -Cardiology consultation appreciated -Continue ASA, Crestor, Losartan (4) Breast cancer: S/p mastectomy. -Managed with anastrazole, continue (5) Dyslipidemia: Chronic. Stable -Continue Crestor - Increase to 10mg (6) Esophageal reflux: Chronic. Stable -Continue Omeprazole (7) Hypertension: Blood pressure stable -Continue Losartan -Continue to monitor (8) Vitamin D deficiency: Chronic. Stable -Continue Calcium/Vitamin D (9) Asthma: Chronic. Stable. No wheezing on exam -Continue Albuterol, Zafirlukast Subjective Patient reports feeling better in regards to her back pain. She states though that she has been having intermittent pressure like, midsternum chest pain which can occur almost daily. When they occur, they mainly occur at rest. They last about one hour. Patient denies any nausea, vomting, nor relation with food. Review of Systems Review of Systems: All systems reviewed & are unremarkable except as noted in HPI & below Physical Exam Physical Exam: General: patient resting comfortably, NAD, non-toxic in appearance, AA&O x 4 Skin: warm, dry, intact, no rashes or lesions HEENT: NC/AT, PERRL, EOMI, anicteric sclera, conjunctiva without injection, external ear normal to inspection and nontender, nares patent, moist mucus membranes, dentition intact, no oropharyngeal lesions, neck supple, trachea midline, no LAD, no thyromegaly, no JVD Heart: +S1/S2, regular, 3/6 KATHRYN at 2nd right ICS with radiation to carotids, no reproducible chest wall or rib pain, no rash on chest or back Lungs: equal air entry bilaterally, no rales/rhonchi/wheezes Abd: +BS, soft, NT/ND, no masses/organomegaly/ascites Ext: warm, 2+ pulses in UE/LE bilaterally, no clubbing/cyanosis or edema Neuro: nonfocal, patient AA&O x 4, speech intact, no facial droop, moving all extremities on command with equal strength 5/5 Results & Data Vital Signs (Past 12 Hours) Vital Signs Temp Pulse Resp BP BP Pulse Ox 07/14/19 19:33 36.7 C 66 18 133/81 94 07/14/19 15:14 36.7 C 70 20 125/84 93 07/14/19 11:28 36.5 C 63 20 147/83 H 96 PG Care Time/CCT Total # of Minutes Spent Total Time Spent with Patient: Total time spent is greater than 50% in coordination of care (as documented) at patient's floor/unit and/or counseling patient: (1) Breast cancer Breast location: unspecified site of breast (2) Esophageal reflux Esophagitis presence: esophagitis presence not specified Qualified Code(s): K21.9 - Gastro-esophageal reflux disease without esophagitis (3) Hypertension Hypertension type: essential hypertension Qualified Code(s): I10 - Essential (primary) hypertension
[2019-07-15 06:06] LABS: Hematocrit (blood only) 39.3 % (37-47); Hemoglobin 13.1 g/dL (12.0-16.0); Mean Corpuscular Hemoglobin 30.2 pg (25-34); Mean Corpuscular Hgb Conc 33.3 g/dL (32-36); Mean Corpuscular Volume 90.6 fL (80-100); Mean Platelet Volume 9.6 fL (7.4-10.4); Platelet Count 205 K/uL (130-400); RDW Coefficient of Variation 12.6 % (11.5-14.5); RDW Standard Deviation 41.7 fL (36.4-46.3); Red Blood Count 4.34 M/uL (4.2-5.4)
[2019-07-15] MEDS: BUDESONIDE/FORMOTEROL FUMARATE 80/4.5 60 PUFFS/INHALER INH SCH ×2 (10:20→19:56)
[2019-07-15] MEDS: ANASTROZOLE 1 MG TAB PO SCH (10:21)
[2019-07-15] MEDS: PANTOprazole 40 MG TAB PO SCH ×2 (10:21→19:57)
[2019-07-15] MEDS: ROSUVASTATIN CALCIUM 10 MG TAB PO SCH (10:21)
[2019-07-15] MEDS: GABAPENTIN 100 MG CAP PO SCH (10:21)
[2019-07-15] MEDS: LOSARTAN POTASSIUM 50 MG TAB PO SCH (10:21)
[2019-07-15] MEDS: ENOXAPARIN INJ 40 MG/0.4 ML SYR SQ SCH (10:22)
[2019-07-15] MEDS: SERTRALINE HCL 100 MG TABLET PO SCH (10:22)
[2019-07-15] MEDS: ASPIRIN 81 MG ECTAB PO SCH (10:22)
[2019-07-15] MEDS: CALCIUM 600MG + VIT D 400 IU TAB PO SCH (10:22)
[2019-07-15] MEDS: LIDOCAINE 5% 1 PATCH TD SCH ×2 (10:24→12:27)
[2019-07-15] MEDS: ACETAMINOPHEN 325 MG TAB PO PRN (10:32)
--- NOTE | 2019-07-15 14:47 | Cardiology Progress Note ---
Date of Service July 15, 2019 Assessment & Plan (1) Acute right-sided back pain: Her right-sided back pain is almost certainly noncardiac. It had been sustained with no increase in troponin after admission, no electrocardiographic changes and the character is very atypical for coronary artery disease. It has improved considerably. I would treat her back discomfort as a local discomfort and not cardiac discomfort. (2) Elevated troponin: Her elevated troponin on admission is worrisome. She has had a TIA detected in the past, she does have risk factors for coronary disease and although has not been diagnosed with coronary artery disease in the past her recent stress echo suggest that she does have ischemia. The specific cause of the elevated troponin in a decreasing pattern following admission is probably demand ischemia and not an acute coronary event. We know she has carotid disease and I believe she has coronary disease and I would treat her with medical management for coronary artery disease. She now recalls feeling chest tightness as noted in the subjective section. The symptoms are still quite atypical, there is no clear exertional component, they last for quite a while and do not seem to be changing. I remain reluctant to consider cardiac catheterization. One option might be to perform a Lexiscan pharmacologic stress test, 1 of the issues with her last stress test was the development of ventricular bigeminy but that should not happen with Lexiscan. This could be done as an outpatient. If that shows significant ischemia, certainly a large distribution, we may need to reconsider catheterization. I would continue aspirin therapy and Crestor. (3) Aortic valve vegetation: There is a remote possibility that she has an aortic valve vegetation. This could be an artifact but it is worrisome, however I do not see any indication that she has sepsis. Her white count was normal several days ago, she has not been febrile but has been on aspirin. She does have the back and the shoulder discomfort. So far blood cultures have been negative and her sed rate is not terribly elevated, repeat blood count was not elevated and she remains afebrile. If the blood cultures remain negative I would not pursue further evaluation, the next step would be transesophageal echocardiography or a repeat transthoracic echo with extra imaging of the valve. Subjective She seems to be feeling better today. She still has some right shoulder discomfort but she seems to find it manageable. Her right back discomfort appears better. 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 She describes a dull substernal chest pressure lasting perhaps 20 minutes, occurring on a daily basis and occurring over the last several months she believes although she is not very clear on that. It is not associated with any other symptoms, it is not exertional and can occur at any time. She does not really do anything about it when she gets it. She was having a little bit of it today when I talked to her. Physical Exam Physical Exam: Constitutional: Alert, cooperative and in no distress. Pulmonary: Clear to auscultation bilaterally. Cardiac: Regular rhythm with no murmur, gallop or rub. Abdomen: Soft, nontender with normal bowel sounds. Extremities: No edema. Skin: No rash, ecchymoses or petechiae. Results & Data Vital Signs (Past 12 Hours) Vital Signs Temp Pulse Pulse Resp BP Pulse Ox 07/15/19 11:34 37.0 C 62 20 126/78 94 07/15/19 07:47 36.6 C 80 18 138/87 95 07/15/19 07:33 59 L 07/15/19 04:51 36.7 C 67 18 118/79 92 Diagnostic Findings Telemetry: Sinus rhythm rate 50 to 70 bpm PG Care Time/CCT Total # of Minutes Spent Total Time Spent with Patient: Total time spent is greater than 50% in coordination of care (as documented) at patient's floor/unit and/or counseling patient: (1) Acute right-sided back pain Back pain location: thoracic back pain Qualified Code(s): M54.6 - Pain in thoracic spine
[2019-07-15] MEDS: MONTELUKAST SODIUM 10 MG TABLET PO SCH (19:56)
[2019-07-15] MEDS: GABAPENTIN 300 MG CAP PO SCH (19:57)
[2019-07-15] MEDS: TRAZODONE HCL 100 MG TAB PO SCH (19:57)
--- NOTE | 2019-07-15 22:10 | Hospitalist Progress Note ---
Date of Service July 15, 2019 Assessment & Plan (1) Chest pain: Patient had positive stress test and troponin, initially felt like this was asymptomatic CAD. Patient now complaining of subjective chest pain. This does have atypical findings, d/w cardio, recommended against cardiac cath at this time will have lexiscan done as an outpatient. Will treat CAD with medical management. Another issue is that there appears there may be vegetation in her heart. TIMMY was cancelled, awaiting bacterial culture. (2) Acute right-sided thoracic back pain: Suspect component of musculoskeletal pain Likely related to right shoulder repair, perhaps a component of frozen shoulder with compensation (overuse) of other muscles) will continue: -Lidoderm patch -Tylenol PRN -Voltaren gel Appreciate input from ortho (3) Elevated troponin: No acute EKG changes. Patient risk factors include HTN, NLP, prior TIA. She does admit to some exertional dyspnea that has worsened over the years. Denies exertional chest pain. Troponin = 0.13 -Cardiac monitoring -Troponin peaked and now is normal. -will require cardiac eval: as stated above. -Cardiology consultation appreciated -Continue ASA, Crestor, Losartan (4) Breast cancer: S/p mastectomy. -Managed with anastrazole, continue (5) Dyslipidemia: Chronic. Stable -Continue Crestor - Increase to 10mg (6) Esophageal reflux: Chronic. Stable -Continue Omeprazole (7) Hypertension: Blood pressure stable -Continue Losartan -Continue to monitor (8) Vitamin D deficiency: Chronic. Stable -Continue Calcium/Vitamin D (9) Asthma: Chronic. Stable. No wheezing on exam -Continue Albuterol, Zafirlukast Subjective 64 yo f reports no new symptoms. Review of Systems Review of Systems: All systems reviewed & are unremarkable except as noted in HPI & below Physical Exam Physical Exam: General: patient resting comfortably, NAD, non-toxic in appearance, AA&O x 4 Skin: warm, dry, intact, no rashes or lesions HEENT: NC/AT, PERRL, EOMI, anicteric sclera, conjunctiva without injection, external ear normal to inspection and nontender, nares patent, moist mucus membranes, dentition intact, no oropharyngeal lesions, neck supple, trachea midline, no LAD, no thyromegaly, no JVD Heart: +S1/S2, regular, 3/6 KATHRYN at 2nd right ICS with radiation to carotids, no reproducible chest wall or rib pain, no rash on chest or back Lungs: equal air entry bilaterally, no rales/rhonchi/wheezes Abd: +BS, soft, NT/ND, no masses/organomegaly/ascites Ext: warm, 2+ pulses in UE/LE bilaterally, no clubbing/cyanosis or edema Neuro: nonfocal, patient AA&O x 4, speech intact, no facial droop, moving all extremities on command with equal strength 5/5 Results & Data Vital Signs (Past 12 Hours) Vital Signs Temp Pulse Pulse Resp BP Pulse Ox 07/15/19 19:04 36.6 C 75 18 138/90 95 07/15/19 15:36 37.0 C 69 18 124/79 94 07/15/19 15:17 64 07/15/19 11:34 37.0 C 62 20 126/78 94 PG Care Time/CCT Total # of Minutes Spent Total Time Spent with Patient: Total time spent is greater than 50% in coordination of care (as documented) at patient's floor/unit and/or counseling patient: (1) Breast cancer Breast location: unspecified site of breast (2) Esophageal reflux Esophagitis presence: esophagitis presence not specified Qualified Code(s): K21.9 - Gastro-esophageal reflux disease without esophagitis (3) Hypertension Hypertension type: essential hypertension Qualified Code(s): I10 - Essential (primary) hypertension
[2019-07-16] MEDS: ACETAMINOPHEN 325 MG TAB PO PRN ×2 (02:40→09:57)
[2019-07-16] MEDS: DICLOFENAC SOD 1% GEL 100 GM TUBE EXT PRN (02:41)
[2019-07-16] MEDS: PANTOprazole 40 MG TAB PO SCH (09:03)
[2019-07-16] MEDS: LOSARTAN POTASSIUM 50 MG TAB PO SCH (09:04)
[2019-07-16] MEDS: GABAPENTIN 100 MG CAP PO SCH (09:04)
[2019-07-16] MEDS: ROSUVASTATIN CALCIUM 10 MG TAB PO SCH (09:04)
[2019-07-16] MEDS: ASPIRIN 81 MG ECTAB PO SCH (09:04)
[2019-07-16] MEDS: CALCIUM 600MG + VIT D 400 IU TAB PO SCH (09:04)
[2019-07-16] MEDS: SERTRALINE HCL 100 MG TABLET PO SCH (09:04)
[2019-07-16] MEDS: ENOXAPARIN INJ 40 MG/0.4 ML SYR SQ SCH (09:04)
[2019-07-16] MEDS: LIDOCAINE 5% 1 PATCH TD SCH (09:05)
[2019-07-16] MEDS: ANASTROZOLE 1 MG TAB PO SCH (09:05)
[2019-07-16] MEDS: BUDESONIDE/FORMOTEROL FUMARATE 80/4.5 60 PUFFS/INHALER INH SCH (09:05)
--- NOTE | 2019-07-18 02:33 | Discharge Summary ---
Date of Service July 16, 2019 Admission HPI Per Admitting Provider Lashonda France is a 64yo C female with history of HTN, HLP, Breast CA s/p mastectomy on Anastrazole therapy presenting with back and chest discomfort. She reports her discomfort starting approximately 1 week ago. She was seen in the ER on 07/10 - had an elevated D-dimer at that time, 1028. CTA Chest was negative for PE. She was given a small amount of Oxycodone and discharged home. She reports taking 2 Oxycodone which caused some nausea and vomiting, no relief in back pain. She presents today with severe discomfort - pain in mid thoracic back with radiation to anterior portion of chest. Worsening over the last 2 days. 10/10 in severity, cramping in nature. Improved slightly with use of ice. Pain is non-pleuritic/non-positional and non-exertional. She has stable SOB and cough from her asthma. Denies palpitations, edema, weight gain. Occasional dizziness upon standing. ER Course: Acetaminophen, ASA, Dilaudid, Nitro, Zofran Principal Diagnosis chest pain Discharge Exam General: patient resting comfortably, NAD, non-toxic in appearance, AA&O x 4 Skin: warm, dry, intact, no rashes or lesions HEENT: NC/AT, PERRL, EOMI, anicteric sclera, conjunctiva without injection, external ear normal to inspection and nontender, nares patent, moist mucus membranes, dentition intact, no oropharyngeal lesions, neck supple, trachea midline, no LAD, no thyromegaly, no JVD Heart: +S1/S2, regular, 3/6 KATHRYN at 2nd right ICS with radiation to carotids, no reproducible chest wall or rib pain, no rash on chest or back Lungs: equal air entry bilaterally, no rales/rhonchi/wheezes Abd: +BS, soft, NT/ND, no masses/organomegaly/ascites Ext: warm, 2+ pulses in UE/LE bilaterally, no clubbing/cyanosis or edema Neuro: nonfocal, patient AA&O x 4, speech intact, no facial droop, moving all extremities on command with equal strength 5/5 Discharge Data Allergies Allergy/AdvReac Type Severity Reaction Status Date / Time latex Allergy Severe HIVES Verified 07/12/19 01:57 naproxen Allergy Intermediate RASH Verified 07/12/19 01:57 Consultations 11/19/19 02:59 ED Decision to Admit Stat 07/12/19 05:58 Consult Cardiology Routine 07/12/19 18:29 Consult Orthopedic Surgery Routine 07/14/19 17:22 Consult Anesthesiology Routine Hospital Course (1) Chest pain: Patient had positive stress test and troponin, initially felt like this was asymptomatic CAD. Patient now complaining of subjective chest pain. This does have atypical findings, d/w cardio, recommended against cardiac cath at this time will have lexiscan done as an outpatient. Will treat CAD with medical management. Another issue is that there appears there may be vegetation in her heart. TIMMY was cancelled, awaiting bacterial culture. Patient is asymptomatic now, will discharge patient, will call if blood cultures returned goods receiving clerk to be positive. If negative, will followup with PCP. (2) Acute right-sided thoracic back pain: Suspect component of musculoskeletal pain Likely related to right shoulder repair, perhaps a component of frozen shoulder with compensation (overuse) of other muscles) will continue: -Lidoderm patch -Tylenol PRN -Voltaren gel Appreciate input from ortho (3) Elevated troponin: No acute EKG changes. Patient risk factors include HTN, NLP, prior TIA. She does admit to some exertional dyspnea that has worsened over the years. Denies exertional chest pain. Troponin = 0.13 -Cardiac monitoring -Troponin peaked and now is normal. -will require cardiac eval: as stated above. -Cardiology consultation appreciated -Continue ASA, Crestor, Losartan cARDIO WILL like to repeat stress test, but this time to do lexiscan stress test as outpatient. (4) Breast cancer: S/p mastectomy. -Managed with anastrazole, continue (5) Dyslipidemia: Chronic. Stable -Continue Crestor - Increase to 10mg (6) Esophageal reflux: Chronic. Stable -Continue Omeprazole (7) Hypertension: Blood pressure stable -Continue Losartan -Continue to monitor (8) Vitamin D deficiency: Chronic. Stable -Continue Calcium/Vitamin D (9) Asthma: Chronic. Stable. No wheezing on exam -Continue Albuterol, Zafirlukast Total Time Total Time Spent Total Time Spent (In Minutes): 32 Total Time Includes: Examination of the Patient, Discharge Planning and Medication Reconciliation Discharge Plan Discharge Items Patient Disposition: Home - Self-Care Reason For Visit: INTRACTABLE CHEST PAIN Discharge Diagnosis: intractable chest pain Activity: Resume your previous activity Non-emergency contact: Primary Care Provider Call non-emergency contact if: you have any medication questions Follow-up/Referrals: Heraclio Horowitz III, MD [Primary Care Provider] - Diet: Heart Healthy Addtl Attending Provider Instructions: Will recommend followup with cardiology for a lexiscan stress test. will call you if the blood culture is positive. Recommend followup with ortho in regards to your right shoulder pain If 5% lidocaine patch is too expensive, over the counter versions exist which is 4% strength. Pending Studies at Discharge: No Stand-Alone Forms: My [facility] Sw[facility]jit, Smoking Cessation Medications and DC Order Prescriptions: New lidocaine 5 % Adhesive Patch,Medicated 1 patch transdermal QAM Qty: 15 RF: 0 rosuvastatin [Crestor] 10 mg Tablet 10 mg PO DAILY Qty: 30 RF: 0 Continued lorazepam 0.5 mg tablet 0.5 mg PO DAILY PRN (Reason: Anxiety) Qty: 30 RF: 0 tramadol 50 mg tablet 50 mg PO Q6H PRN (Reason: Pain) Qty: 180 RF: 0 anastrozole 1 mg tablet 1 mg PO DAILY Qty: 90 RF: 3 gabapentin 100 mg capsule See Rx Instructions .ROUTE .COMPLEX Qty: 360 RF: 0 losartan 50 mg tablet 50 mg PO DAILY Qty: 90 RF: 0 trazodone 100 mg tablet 200 mg PO HS Qty: 180 RF: 0 albuterol sulfate 2.5 mg /3 mL (0.083 %) Solution For Nebulization 2.5 mg INHALATION QID PRN (Reason: Shortness Of Breath Or Wheezing) RF: 0 aspirin 81 mg Tablet,Delayed Release (Dr/Ec) 81 mg PO QAM RF: 0 zafirlukast 20 mg tablet 20 mg PO BID RF: 0 omeprazole 20 mg Capsule,Delayed Release(Dr/Ec) 20 mg PO BID RF: 0 fluticasone furoate-vilanterol 100-25 mcg/dose blister with device 1 puff Inhalation QAM RF: 0 Calcium 600 + D(3) 600 mg calcium- 200 unit Capsule 2 cap PO QAM RF: 0 sertraline 100 mg tablet 100 mg PO QAM RF: 0 oxycodone-acetaminophen 5-325 mg tablet 1 tab PO Q6H PRN (Reason: Pain) RF: 0 albuterol sulfate [Ventolin HFA] 90 mcg/actuation HFA aerosol inhaler 2 puffs INH QID PRN (Reason: Shortness Of Breath Or Wheezing) RF: 0 diclofenac sodium 1 % gel 4 gm TOP QID PRN (Reason: Pain) RF: 0 oxycodone 5 mg tablet 5 - 10 mg PO Q4H PRN (Reason: pain) Qty: 8 RF: 0 Discontinued rosuvastatin 5 mg tablet 5 mg PO DAILY Qty: 90 RF: 0 Discharge Orders: Discharge Order (Routine); Ordered 07/16/19 Ordered By: Stef Brewer Admission Data Admit Date/Time: 07/14/19 07:01 Attending Provider: Stef Brewer Admit Provider: Stef Brewer Primary Care Provider: Heraclio Horowitz III Other Providers: Ewelina Oliver ; Rachid Degroot ; Jacek Gaspar ; Albina David ; Aletha Pearson ; Nicole Beckwith ; Jennifer Perez ; Lashonda Guillen ; Josette Baker ; Tobin Moraes ; Brayden Hodge ; Silvio Chu ; Lucas Pearson ; Mary Kay Pearson ; Jacek Macias ; Radha Parsons ; Kareem Hairston ; Bebo Glass ; Abel Sauceda ; Yung Conte se ; Dexter Salgado ; Chayo Suggs ; Sanchez Magaña ; Ghazal Cruz ; Zamzam Magaña ; [place] ; Dianelys [place] ; Foster Hand ; Prudence Pope ; Paris Williamson ; Santi Delvalle ; Ewelina Adkins ; Carmen Kaufman ; Angela Lucio ; Kamilah Avila ; Alexis [place] ; Marcelo Solares ; Nicole Manuel ; Kevin Stephenson ; [place] ; Darlin Gonzalez ; Anita Molina ; Alexis Douglas ; Edwar Suggs ; Austin Barney ; Julianna Mina ; Angela Alfonso ; Silvio Fountain ; Salma Lea ; Bebo Robin ; Torres Salgado ; Shannan Grajeda ; Glenys Odell ; Ever Becker Other Interventions: Discharge Summary Assessment (RN) Last Done: 07/16/19 17:45 DC Date/Time DO NOT enter until pt leaves facility: 07/16/19 18:07
== END 2019-07-16 18:07 | disposition home or self-care (01) | DRG 552 ==
LOC: 2S 01:26 → ED 01:26 → SUATTDRO 04:00 → 2S 05:37

== ENCOUNTER 2024-11-18 12:26 | Observation (INO) ==
[2024-11-18] MEDS: ALBUT/IPRATROP 3MG/0.5MG NEB 3 ML VIAL NEB STA ×2 (12:55→19:31)
[2024-11-18 12:57] LABS: HCO3 VBG 28 mmol/L; PCO2 VBG 37 mmHg (38-50); PO2 VBG 63 mmHg; pH VBG 7.48 (7.36-7.41)
--- NOTE | 2024-11-18 13:04 | Emergency Department Note ---
Impression & Plan SOB (shortness of breath), Pneumonia, Asthma exacerbation, Failure of outpatient treatment, Elevated troponin, Leukocytosis ED Provider Note NAME: YOSVANY MEDRANO AGE: 69 SEX: F : 1955 ARRIVES VIA: Walk-In INFORMANT: [Patient] ED PROVIDER(S): [Domingo Calderon MD] CHIEF COMPLAINT: Short of breath HISTORY OF PRESENT ILLNESS: The patient is a 69-year-old female with a history of asthma who presents with increasing dyspnea since last week. Last week, she was diagnosed with influenza and given prednisone. Her last dose is this evening. Despite the treatment, her breathing seems worse, she has green sputum production and she feels dizzy. No fever. She does have a nebulizer at home but states this is not really helping. She is worried she might have pneumonia. PMHx/PSHx/Social Hx: See Below PHYSICAL EXAM: GENERAL: Patient is in no acute distress. HEENT: No acute trauma, normocephalic atraumatic, mucous membranes moist, no nasal congestion. NECK: No stridor, no adenopathy, no meningismus, trachea is midline. LUNGS: She has decreased breath sounds with some scattered wheezing. There are crackles in the left lower lung. No respiratory distress. HEART: Without murmurs gallops or rubs, regular rate and rhythm. ABDOMEN: Soft, nontender, no peritonitis. EXTREMITIES: No cyanosis, full range of motion of all the joints without pain or difficulty. Mild bilateral pedal edema. NEUROLOGIC: Oriented x 3, no acute motor or sensory deficits, no focal weakness. SKIN: No jaundice, no diaphoresis. DIFFERENTIAL DIAGNOSIS: Bronchitis, pneumonia, asthma flare, anemia, PE, among others. EMERGENCY DEPARTMENT PROCEDURES: MEDICAL DECISION MAKING: There is a mild leukocytosis, this would be consistent with infection. There was a normal hemoglobin and platelet count. No coagulopathy. VBG did not show acidosis or significant CO2 retention. No renal failure or significant electrolyte abnormality. Lactic acid level was elevated consistent with potential dehydration and/or infection. No concerning liver enzyme elevation. ECG showed sinus rhythm without acute ST elevation. Cardiac enzyme testing x 1 was somewhat elevated consistent with potential cardiac injury versus mismatch from her dyspnea. Urinalysis did not show findings of infection. Chest x-ray did not show any obvious pneumonia. Chest CT did not show PE, pneumonia on the left was seen. On exam, the patient did have crackles in the left lower lung. Patient was given oral doxycycline, IV ceftriaxone. She was given oral aspirin. She received 2 DuoNebs while in the ED, she was given IV Tylenol. The patient presents with increasing dyspnea despite medications given outpatient. She does have pneumonia based on CT imaging and exam. She has a leukocytosis. She has an elevated troponin. She has failed outpatient management and at this point, requires hospitalization. I spoke with the patient and case management, the on-call hospitalist was consulted. The patient does seem to be somewhat improved with treatment provided here in the ED. Prior/Outside records/notes reviewed: None ECG per my interpretation: Indication was shortness of breath. The ECG shows a normal sinus rhythm with a rate of 67. There is a potential old inferior infarct. There is no acute ST elevation, no PVCs. The QTc is 443. Continuous Cardiac Monitoring per my interpretation: An order was placed for continuous cardiac monitoring. The monitor shows a rate of 70 with normal sinus rhythm. Imaging/x-ray results per my interpretation: Chest x-ray does not show pneumonia or CHF. Chronic Medical/Social conditions affecting care: Advanced age. Care/Management discussed with: Case management, the on-call hospitalist. Level of care consideration(s): After review of the information above and other included data: --I believe the patient requires escalation of care to admission Critical Care Note: I have personally spent 39 minutes of critical care time in the direct management of this patient. This includes bedside care, interpretation of diagnostic studies, and testing, discussion with consultants, patient, and family members, and other required patient management activities. This 39 minutes is in excess of all separately billable procedures. 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) Allergic rhinitis due to animal dander (Acute) Allergic rhinitis due to dust (Acute) Allergic rhinitis due to pollen (Acute) Carpal tunnel syndrome, bilateral (Acute) Esophageal reflux (Acute) Gilbert's syndrome (Acute) Hyperparathyroidism (Acute) Impaired fasting glucose (Acute) Insomnia (Chronic) Intervertebral disc degeneration (Acute) Lymphedema of arm (Acute) Major depression, recurrent (Chronic ~11/2020) Neuropathy (Chronic) Nocturnal hypoxia (Acute) Obesity (Chronic) Osteoporosis (Acute) Restless legs syndrome (Acute) Sleep apnea (Acute) NO DEVICE (HAS A BED THAT CAN HAVE HEAD UP) Vitamin D deficiency (Acute) Hyperlipidemia (Chronic) Asthma (Chronic) inhalers HTN (hypertension) (Chronic) Hyperlipidemia CAD (coronary artery disease) Stress test suggestive of ischemia 06/2019. Seen by cardiology 07/28/19, medically managed, cardio reluctant to pursue cath as she was asymptomatic. To f/u with cardio only as-needed. Status post reverse total replacement of right shoulder (~10/2020) Medical History Chronic constipation Allergic rhinitis Hx of insomnia History of rib fracture (07/04/22) due to fall Hx of major depression History of sleep apnea denies, uses a raised bed that helps History of COVID-19 (~2019) not hospitalized, resolved Hx of vertigo Transient ischemic attack (TIA) (~2013) ASA, no neuro HX: breast cancer lt, no chemo or XRT Osteoarthritis GERD (gastroesophageal reflux disease) Peripheral neuropathy b/l feet Surgical History History of bilateral cataract extraction Hx of arthroscopy of right knee History of repair of right rotator cuff (~04/2019) History of bilateral tubal ligation History of colonoscopy (01/06/19) Dr. Simpson, sigmoid diverticulosis, repeat 10 years History of tooth extraction Family History Brother Asthma Lung disease COPD Sister Asthma Aunt Breast cancer Mother Heart disease Kidney disease Myocardial infarction Grandmother (Maternal) Myocardial infarction Grandmother (Paternal) Myocardial infarction Other Cancer Diabetes Gallbladder disease Heart disease Hypertension Kidney stone Lung cancer No family history of adverse response to anesthesia Denies family history of Ovarian cancer Prostate cancer Colorectal cancer Social History Smoking Status: Never smoker Tobacco Type: Cigarettes Age Started Using Tobacco: 20; Age Quit Using Tobacco: 29; packs per day: 1; Cigarettes Per Day: 1 PPD; Second Hand Exposure: No; Do You Dip or Chew Tobacco: No; Hx Alcohol Use: No Hx Substance Use: No Preferred Language: British Communication Ability: Effective Visual Impairment: No Limitations Hearing Ability: Normal Loan Collector Required: No Beliefs That Will Affect Care: None marital status: Current Living Situation: Spouse current occupational status: retired 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 for [employer] Feels Safe at Home: Yes Childhood Exposure to Second-Hand Smoke: No Diet: regular caffeine: Yes (Coffee ) Dental Care, Regularly: No Physical Activity Frequency: Daily Physical Activity Frequency Comment: Housework/gardening/walking Seatbelt Use: sometimes Sunscreen Use: No Assistive Devices: Denture - Upper and Nebulizer Allergies Allergies Allergy/AdvReac Type Severity Reaction Status Date / Time latex Allergy Intermediate HIVES Verified 10/10/24 09:33 naproxen Allergy Mild RASH Verified 10/10/24 09:33 Home Meds Home Medications Medication Instructions Recorded Confirmed aspirin 81 mg tablet,delayed 81 mg PO QAM 05/16/18 11/18/24 release calcium 600 mg (as 2 cap PO QAM 12/13/18 11/18/24 carbonate)-vitamin D3 5 mcg (200 unit) capsule (Calcium 600 + D(3)) ibuprofen 200 mg tablet 400 mg PO Q6H PRN Pain 10/15/20 11/18/24 diclofenac sodium 1 % topical gel 4 g topical QID PRN Pain 11/25/23 11/18/24 gabapentin 100 mg capsule 100 - 200 mg PO UD 11/18/24 11/18/24 prednisone 20 mg tablet 20 mg PO BID 11/18/24 11/18/24 Previous Rx's Medication Instructions Recorded ondansetron 4 mg disintegrating 4 mg PO Q6H PRN nausea #90 tabs 08/29/22 tablet trazodone 100 mg tablet 200 mg (2 x 100 mg) PO HS 90 days 09/13/24 #180 tabs Ventolin HFA 90 mcg/actuation 2 inh inhalation QID PRN Shortness 10/10/24 aerosol inhaler (albuterol sulfate) Of Breath Or Wheezing #54 grams fluticasone furoate 100 1 inh inhalation DAILY 90 days #90 10/10/24 mcg-vilanterol 25 mcg/dose ea inhalation powder (Breo Ellipta) losartan 50 mg tablet 50 mg PO QAM #90 tabs 10/10/24 omeprazole 20 mg capsule,delayed 20 mg PO BID #180 caps 10/10/24 release rosuvastatin 10 mg tablet 10 mg PO QAM #90 tabs 10/10/24 albuterol sulfate 2.5 mg/3 mL 2.5 mg (3 mL) inhalation QID PRN 11/16/24 (0.083 %) solution for nebulization Shortness Of Breath Or Wheezing #90 mL nebulizer accessories #1 ea 11/17/24 Results & Data (ED) Vital Signs Vital Signs - 24 hr 11/18/24 12:28 11/18/24 12:36 11/18/24 12:36 Temperature 36.8 C Temperature Source Temporal Artery Scan Pulse Rate 70 Pulse Rate [Finger] Respiratory Rate 18 Respiratory Effort / Characteristics Non-Labored Spontaneous Respiratory Depth Normal Respiratory Pattern Regular Tachypnea Blood Pressure 189/86 H Blood Pressure [Right Arm] Blood Pressure Mean 120 Blood Pressure Mean [Right Arm] Blood Pressure Position Sitting Blood Pressure Position [Right Arm] Pulse Oximetry 91 Oxygen Delivery Method Room Air Room Air Sepsis Recent Fever Within 48 Hours No Sepsis New/Unexplained Change in Mental Status No Sepsis Action Taken by Nursing No Action Required 11/18/24 12:36 11/18/24 12:36 11/18/24 13:20 Temperature Temperature Source Pulse Rate 67 Pulse Rate [Finger] Respiratory Rate 26 H Respiratory Effort / Characteristics Respiratory Depth Respiratory Pattern Tachypnea Blood Pressure Blood Pressure [Right Arm] Blood Pressure Mean Blood Pressure Mean [Right Arm] Blood Pressure Position Blood Pressure Position [Right Arm] Pulse Oximetry 93 Oxygen Delivery Method Room Air Room Air Sepsis Recent Fever Within 48 Hours Sepsis New/Unexplained Change in Mental Status Sepsis Action Taken by Nursing 11/18/24 13:25 11/18/24 13:28 11/18/24 14:47 Temperature Temperature Source Pulse Rate 79 60 Pulse Rate [Finger] 79 Respiratory Rate 20 18 20 Respiratory Effort / Characteristics Non-Labored Spontaneous Respiratory Depth Normal Respiratory Pattern Regular Blood Pressure 141/93 H 136/82 Blood Pressure [Right Arm] 141/93 H Blood Pressure Mean 98 104 Blood Pressure Mean [Right Arm] 109 Blood Pressure Position Blood Pressure Position [Right Arm] Sitting Pulse Oximetry 92 91 93 Oxygen Delivery Method Room Air Room Air Room Air Sepsis Recent Fever Within 48 Hours Sepsis New/Unexplained Change in Mental Status Sepsis Action Taken by Long-Term Medications Current Medication List: was personally reviewed by me Laboratory Data Attestation: I reviewed the patient's lab results. 11/18/24 12:45 11/18/24 12:45 Lab Results 11/18/24 11/18/24 Range/Units 12:45 13:45 WBC 11.02 H (4.8-10.8) K/ul RBC 4.94 (4.20-5.40) M/uL Hgb 15.1 (12.0-16.0) g/dl Hct 42.6 (37.0-47.0) % MCV 86.2 (80.0-100.0) fL MCH 30.6 (25.0-34.0) pg MCHC 35.4 (32.0-36.0) g/dL RDW Std Deviation 38.5 (36.4-46.3) fL RDW Coeff of Anjana 12.2 (11.5-14.5) % Plt Count 271 (130-400) K/uL MPV 9.8 (9.4-12.4) fL Immature Gran % (Auto) 2.5 % Neut % (Auto) 83.1 % Lymph % (Auto) 9.6 % [place] % (Auto) 4.5 % Eos % (Auto) 0.1 % Baso % (Auto) 0.2 % Neut # (Auto) 9.15 H (1.40-6.50) K/uL Lymph # (Auto) 1.06 L (1.20-3.40) K/uL [place] # (Auto) 0.50 (0.11-0.59) K/uL Eos # (Auto) 0.01 (0.00-0.50) K/uL Baso # (Auto) 0.02 (0.00-0.20) K/uL Immature Gran # (Auto) 0.28 H (0.01-0.20) K/uL PT 10.9 (9.0-12.0) Seconds INR 1.0 (0.9-1.1) APTT 23 (21-31) Seconds PTT Ratio 0.9 VBG pH 7.48 H (7.36-7.41) VBG pCO2 37 L (38-50) mmHg VBG pO2 63 mmHg VBG HCO3 28 mmol/L VBG O2 Saturation 93.0 % VBG Base Excess 4.0 mEq/L Sodium 141 (136-145) mmol/L Potassium 3.5 (3.5-5.1) mmol/L Chloride 104 (98-107) mmol/L Carbon Dioxide 29 (21-32) mmol/L Anion Gap 8 (3-11) BUN 15 (6-23) mg/dl Creatinine 1.00 (0.6-1.2) mg/dl Est Cr Clr Drug Dosing 57.1 ml/min eGFR 60.23 BUN/Creatinine Ratio 15.0 (10-20) Glucose 130 H (70-99(Fasting)) mg/dl Lactate 2.1 H* (0.4-2.0) mmol/L Calcium 9.6 (8.6-10.3) mg/dl Magnesium 2.2 (1.7-2.4) mg/dl Total Bilirubin 1.1 H (0.2-1.0) mg/dl AST 13 (13-39) U/L ALT 12 (7-52) U/L Alkaline Phosphatase 66 (34-104) U/L Troponin I High Sens 18.6 H (0-14) pg/ml B-Natriuretic Peptide 163 H (0-100) pg/ml Total Protein 7.7 (6.0-8.3) gm/dl Albumin 4.1 (3.4-5.0) gm/dl Globulin 3.6 (2.5-4.0) gm/dl Albumin/Globulin Ratio 1.1 (0.9-2) Urine Color Yellow Urine Appearance Clear (Clear) Urine pH 6.5 (4.5-7.5) Ur Specific [place] > 1.045 H (1.000-1.030) Urine Protein Negative (Negative) Urine Glucose (UA) Negative (Negative) Urine Ketones Negative (Negative) Urine Blood Negative (Negative) Urine Nitrite Negative (Negative) Urine Bilirubin Negative (Negative) Urine Urobilinogen Negative (Negative) Ur Leukocyte Esterase Negative (Negative) Administered Medications Budesonide (Budesonide 0.25 Mg/2 Ml Vial (Pulmicort)) 0.25 mg NEB BIDR [facility] Stop: 12/18/24 18:59 Last Admin: 11/18/24 19:31 Dose: 0.25 mg Documented By: MOHINI Losartan Potassium (Losartan Potassium 50 Mg Tab) 50 mg PO QAM [facility] Stop: 12/18/24 17:52 Last Admin: 11/18/24 20:14 Dose: Not Given Documented By: KF Discontinued Medications Albuterol (Albut/Ipratrop 3mg/0.5mg Neb 3 Ml Vial) 3 ml NEB NOW STA; Protocol Stop: 11/18/24 12:38 Last Admin: 11/18/24 12:55 Dose: 3 ml Documented By: MEGHANN Albuterol (Albut/Ipratrop 3mg/0.5mg Neb 3 Ml Vial) 3 ml NEB NOW STA; Protocol Stop: 11/18/24 19:20 Last Admin: 11/18/24 19:31 Dose: 3 ml Documented By: MOHINI Aspirin (Aspirin Chew 324 Mg) 324 mg PO NOW STA Stop: 11/18/24 13:35 Last Admin: 11/18/24 13:49 Dose: 324 mg Documented By: MARKEL Doxycycline Hyclate (Doxycycline Hyclate 100 Mg Cap) 100 mg PO NOW STA Stop: 11/18/24 15:01 Last Admin: 11/18/24 15:22 Dose: 100 mg Documented By: MEGHANN Acetaminophen (Ofirmev) 1,000 mg in 100 mls @ 400 mls/hr IV NOW STA Stop: 11/18/24 13:48 Last Infusion: 11/18/24 15:24 Dose: Infused Documented By: Admin: 11/18/24 14:52 Dose: 400 mls/hr Documented By: MEGHANN Ceftriaxone Sodium (Rocephin) 2,000 mg in 50 mls @ 100 mls/hr IV NOW STA Stop: 11/18/24 14:03 Last Infusion: 11/18/24 15:22 Dose: Infused Documented By: Admin: 11/18/24 14:52 Dose: 100 mls/hr Documented By: MEGHANN Ioversol (Optiray 320 125ml) 119 ml IV ONCE ONE Stop: 11/18/24 14:00 Last Admin: 11/18/24 13:59 Dose: 119 ml Documented By: EDK Imaging Data Radiologist's Impression: Chest X-Ray 11/18/24 12:38 XR chest 1V portable CLINICAL HISTORY: Dyspnea COMPARISON STUDY: 11/13/2024 FINDINGS: Stable mild cardiomegaly without pulmonary vascular congestion. Stable minimal stranding opacity in the lung bases. No new consolidation or pleural effusion. No pneumothorax. IMPRESSION: Stable exam. ACT 112: Negative or not required by law. Electronically signed by: Santi Watts M.D. 11/18/2024 1:26 PM Chest CTA 11/18/24 13:32 CT angio chest PE protocol CT DOSE: 787.79 mGy.cm HISTORY: 69 years-old Female with PE. Acute shortness of breath TECHNIQUE: Multiple CTA images of the chest were obtained after the intravenous administration of 119 ml Optiray. Coronal and sagittal MIPS were obtained from the axial data set and were submitted for review. All measurements were obtained according to NASCET criteria. A dose lowering technique was utilized adhering to the principles of ALARA. COMPARISON: Chest radiograph of same day, CTA chest dated 04/03/2024 FINDINGS: CTA: Mild cardiomegaly with trace pericardial effusion. Mild coronary artery calcifications. Mild uniform dilation of the ascending thoracic aorta, 4.0 x 3.9 cm. Unremarkable pulmonary artery. CT CHEST: Unremarkable thyroid. No pathologically enlarged lymph nodes. No pneumothorax, pleural effusion or overt pulmonary edema. Mild pulmonary emphysema. Mild right basilar atelectasis. Left lower lobe predominant mucous plugging with patchy groundglass and consolidative opacities with a few tree-in-bud nodules. No suspicious pulmonary nodules or masses. Small hiatal hernia. No acute upper abdominal abnormality. Unremarkable soft tissues. Right shoulder arthroplasty. IMPRESSION: 1. No pulmonary emboli. 2. Left lower lobe mucus plugging with a mild infectious or inflammatory pneumonitis/bronchiolitis. 3. No pleural effusion or lymphadenopathy. 4. Mild dilation of the ascending thoracic aorta, 4.0 cm. ACT 112: Negative or not required by law. The above report was generated using voice recognition software. It may contain grammatical, syntax or spelling errors. Electronically signed by: Oswald Calvillo M.D. 11/18/2024 2:31 PM Discharge Plan Visit Data Chief Complaint: Shortness of Breath/Dyspnea Stated Complaint: SOB, DIZZY, LIGH HEADED ED Provider: Domingo Calderon Discharge Problem: SOB (shortness of breath), Pneumonia, Asthma exacerbation, Failure of outpatient treatment, Elevated troponin, Leukocytosis Patient Disposition: Admitted As Inpatient Condition: Fair Discharge Instructions Interventions: ED Discharge Assessment Last Done: 11/18/24 17:44 Discharge Problem: Pneumonia Qualifiers: Pneumonia type: due to unspecified organism Laterality: left Lung location: l ower lobe of lung Qualified Code(s): J18.9 - Pneumonia, unspecified organism Asthma exacerbation Qualifiers: Asthma severity: moderate Asthma persistence: persistent Qualified Code(s): J 45.41 - Moderate persistent asthma with (acute) exacerbation Leukocytosis Qualifiers: Leukocytosis type: unspecified Qualified Code(s): D72.829 - Elevated white blood cell count, unspecified
[2024-11-18 13:06] LABS: Basophils # (auto) 0.02 K/uL (0.00-0.20); Basophils % (auto) 0.2 %; Eosinophils # (auto) 0.01 K/uL (0.00-0.50); Eosinophils % (auto) 0.1 %; Hematocrit (blood only) 42.6 % (37.0-47.0); Hemoglobin 15.1 g/dl (12.0-16.0); Immature Granulocytes # (auto) 0.28 K/uL (0.01-0.20); Immature Granulocytes % (auto) 2.5 %; Lymphocytes # (auto) 1.06 K/uL (1.20-3.40); Lymphocytes % (auto) 9.6 %; Mean Corpuscular Hemoglobin 30.6 pg (25.0-34.0); Mean Corpuscular Hgb Conc 35.4 g/dL (32.0-36.0); Mean Corpuscular Volume 86.2 fL (80.0-100.0); Mean Platelet Volume 9.8 fL (9.4-12.4); Monocytes % (auto) 4.5 %; Neutrophils # (auto) 9.15 K/uL (1.40-6.50); Neutrophils % (auto) 83.1 %; Platelet Count 271 K/uL (130-400); RDW Coefficient of Variation 12.2 % (11.5-14.5); RDW Standard Deviation 38.5 fL (36.4-46.3); Red Blood Count 4.94 M/uL (4.20-5.40); White Blood Count 11.02 K/ul (4.8-10.8)
[2024-11-18 13:23] LABS: Albumin Globulin Ratio 1.1 (0.9-2); Albumin Level 4.1 gm/dl (3.4-5.0); Bilirubin,Total 1.1 mg/dl (0.2-1.0); Calcium 9.6 mg/dl (8.6-10.3); Creatinine Clr Calc Pharmacy 57.1 ml/min; Globulin 3.6 gm/dl (2.5-4.0); Magnesium 2.2 mg/dl (1.7-2.4); Potassium 3.5 mmol/L (3.5-5.1); Total Protein 7.7 gm/dl (6.0-8.3)
--- NOTE | 2024-11-18 13:27 | XRay Report ---
XR chest 1V portable CLINICAL HISTORY: Dyspnea COMPARISON STUDY: 11/13/2024 FINDINGS: Stable mild cardiomegaly without pulmonary vascular congestion. Stable minimal stranding op acity in the lung bases. No new consolidation or pleural effusion. No pneumothorax. IMPRESSION: Stable exam. ACT 112: Negative or not required by law. Electronically signed by: Santi Watts M.D. 11/18/2024 1:26 PM
[2024-11-18 13:28] LABS: Troponin I High Sensitivity 18.6 pg/ml (0-14)
[2024-11-18 13:38] LABS: Partial Thromboplastin Ratio 0.9; Partial Thromboplastin Time 23 Seconds (21-31); Prothrombin Time 10.9 Seconds (9.0-12.0)
[2024-11-18] MEDS: ASPIRIN CHEW 324 MG PO STA (13:49)
[2024-11-18] MEDS: OPTIRAY 320 125ml IV ONE (13:59)
--- NOTE | 2024-11-18 14:24 | Electrocardiogram Report ---
Test Reason : Blood Pressure : */* mmHG Vent. Rate : 67 BPM Atrial Rate : 67 BPM P-R Int : 150 ms QRS Dur : 88 ms QT Int : 420 ms P-R-T Axes : 41 8 61 degrees QTcB Int : 443 ms Normal sinus rhythm Cannot rule out Inferior infarct (cited on or before 31-Mar-2024) Abnormal ECG When compared with ECG of 13-Nov-2024 16:21, No significant change was found Confirmed by Cornell Tinajero ([id number]) on 11/18/2024 2:23:44 PM Referred By: Confirmed By: Cornell Tinajero
--- NOTE | 2024-11-18 14:33 | CT Scan Report ---
CT angio chest PE protocol CT DOSE: 787.79 mGy.cm HISTORY: 69 years-old Female with PE. Acute shortness of breath TECHNIQUE: Multiple CTA images of the chest were obtained after the intravenous administration of 119 ml Optiray. Coronal and sagittal MIPS were obtained from the axial data set and were submitted for review. All measurements were obtained according to NASCET criteria. A dose lowering technique was u tilized adhering to the principles of ALARA. COMPARISON: Chest radiograph of same day, CTA chest dated 04/03/2024 FINDINGS: CTA: Mild cardiomegaly with trace pericardial effusion. Mild coronary artery calcifications. Mild uniform dilation of the ascending thoracic aorta, 4.0 x 3.9 cm. Unremarkable pulmonary artery. CT CHEST: Unremarkable thyroid. No pathologically enlarged lymph nodes. No pneumothorax, pleural effusion or ov ert pulmonary edema. Mild pulmonary emphysema. Mild right basilar atelectasis. Left lower lobe predom inant mucous plugging with patchy groundglass and consolidative opacities with a few tree-in-bud nodu les. No suspicious pulmonary nodules or masses. Small hiatal hernia. No acute upper abdominal abnormality. Unremarkable soft tissues. Right shoulder arthroplasty. IMPRESSION: 1. No pulmonary emboli. 2. Left lower lobe mucus plugging with a mild infectious or inflammatory pneumonitis/bronchiolitis. 3. No pleural effusion or lymphadenopathy. 4. Mild dilation of the ascending thoracic aorta, 4.0 cm. ACT 112: Negative or not required by law. The above report was generated using voice recognition software. It may contain grammatical, syntax o r spelling errors. Electronically signed by: Oswald Calvillo M.D. 11/18/2024 2:31 PM
[2024-11-18] MEDS: ACETAMINOPHEN 1,000 MG/100 ML VIAL IV STA (14:52)
[2024-11-18] MEDS: cefTRIAXone SODIUM 2,000 MG/50 ML BAG IV STA (14:52)
[2024-11-18] MEDS: DOXYCYCLINE HYCLATE 100 MG CAP PO STA (15:22)
--- NOTE | 2024-11-18 15:44 | History & Physical Report ---
Date of Service November 18, 2024 Assessment & Plan (1) Sepsis: Plan: Patient presents to the hospital worsening shortness of breath, having been diagnosed with influenza a few days ago. WBC elevated, serum lactate 2.1, evidence of pneumonia on CT scan Received some fluids in the emergency department Started on empiric IV ceftriaxone and doxycycline Recheck lactate (2) Lobar pneumonia: Plan: Diagnosed with influenza A few days ago however her symptoms did not get better Presents to the hospital worsening shortness of breath and cough with sputum production CT chest showed evidence of pneumonia Blood cultures already obtained, will add sputum culture also urine antigen for Legionella, strep Continue empiric IV ceftriaxone and doxycycline (3) Influenza A: Plan: Diagnosis more than 6 days ago Will defer anti flu medication (4) Breast cancer: Plan: Had double mastectomy Has been cancer free (5) Anxiety: Plan: Will continue home medication (6) Elevated troponin: Plan: Mild elevation in troponin, most likely due to sepsis and demand ischemia Will trend troponin EKG did not show any ST changes (7) Chronic asthma with acute exacerbation: Plan: Patient has a history of asthma, has not used her home inhaler in a long time. However current exacerbation most likely due to pneumonia. Will continue DuoNebs scheduled and as needed And budesonide Plan Admit to telemetry Full code DVT prophylaxis SCDs History of Present Illness Chief Complaint: cough, sob, chest pain Primary Care Provider: Tobin Sheridan, This is a 69-year-old female with a history of asthma, breast cancer status post double mastectomy, who presents to the emergency department today on account of worsening shortness of breath and cough. According to the patient, she was diagnosed with influenza a few days ago and came to the emergency department. She was given steroids and then sent home. She improved for couple days but then her shortness of breath got worse coupled with worsening cough and sputum production. She also complained of chest pain and back pain. This necessitated her coming to the emergency department today. Here in the emergency department vital signs were normal, blood pressure 140/90 pulse 79, afebrile saturating well on room air. WBC was 11,[address] scan of the chest did not show any evidence of pulmonary emboli but shows left lower lobe pneumonia and possible mucous plugging. Cultures were obtained and patient has been progressively on IV antibiotics and will be admitted to the hospital further management. Allergies Allergy/AdvReac Type Severity Reaction Status Date / Time latex Allergy Intermediate HIVES Verified 10/10/24 09:33 naproxen Allergy Mild RASH Verified 10/10/24 09:33 Home Medications Medication Instructions Recorded Confirmed Type aspirin 81 mg tablet,delayed 81 mg PO QAM 05/16/18 11/18/24 History release calcium 600 mg (as 2 cap PO QAM 12/13/18 11/18/24 History carbonate)-vitamin D3 5 mcg (200 unit) capsule (Calcium 600 + D(3)) ibuprofen 200 mg tablet 400 mg PO Q6H PRN Pain 10/15/20 11/18/24 History ondansetron 4 mg disintegrating 4 mg PO Q6H PRN nausea #90 tabs 08/29/22 11/18/24 Rx tablet diclofenac sodium 1 % topical gel 4 g topical QID PRN Pain 11/25/23 11/18/24 History trazodone 100 mg tablet 200 mg (2 x 100 mg) PO HS 90 days 09/13/24 11/18/24 Rx #180 tabs Ventolin HFA 90 mcg/actuation 2 inh inhalation QID PRN Shortness 10/10/24 11/18/24 Rx aerosol inhaler (albuterol sulfate) Of Breath Or Wheezing #54 grams fluticasone furoate 100 1 inh inhalation DAILY 90 days #90 10/10/24 11/18/24 Rx mcg-vilanterol 25 mcg/dose ea inhalation powder (Breo Ellipta) losartan 50 mg tablet 50 mg PO QAM #90 tabs 10/10/24 11/18/24 Rx omeprazole 20 mg capsule,delayed 20 mg PO BID #180 caps 10/10/24 11/18/24 Rx release rosuvastatin 10 mg tablet 10 mg PO QAM #90 tabs 10/10/24 11/18/24 Rx albuterol sulfate 2.5 mg/3 mL 2.5 mg (3 mL) inhalation QID PRN 11/16/24 11/18/24 Rx (0.083 %) solution for nebulization Shortness Of Breath Or Wheezing #90 mL nebulizer accessories #1 ea 11/17/24 Rx gabapentin 100 mg capsule 100 - 200 mg PO UD 11/18/24 11/18/24 History prednisone 20 mg tablet 20 mg PO BID 11/18/24 11/18/24 History Past Med/Surg History Problem List Chronic asthma with acute exacerbation Sepsis Lobar pneumonia Influenza A (Acute) Chest pain (Acute) Disappearance and of family member Anxiety Food impaction of esophagus (Acute) Foreign body in esophagus Acquired deformities of toe(s), unspecified, unspecified foot Onychomycosis Incontinence of urine Chronic knee pain Chronic back pain 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) Allergic rhinitis due to animal dander (Acute) Allergic rhinitis due to dust (Acute) Allergic rhinitis due to pollen (Acute) Carpal tunnel syndrome, bilateral (Acute) Esophageal reflux (Acute) Gilbert's syndrome (Acute) Hyperparathyroidism (Acute) Impaired fasting glucose (Acute) Insomnia (Chronic) Intervertebral disc degeneration (Acute) Lymphedema of arm (Acute) Major depression, recurrent (Chronic ~11/2020) Neuropathy (Chronic) Nocturnal hypoxia (Acute) Obesity (Chronic) Osteoporosis (Acute) Restless legs syndrome (Acute) Sleep apnea (Acute) NO DEVICE (HAS A BED THAT CAN HAVE HEAD UP) Vitamin D deficiency (Acute) Hyperlipidemia (Chronic) Asthma (Chronic) inhalers HTN (hypertension) (Chronic) Hyperlipidemia CAD (coronary artery disease) Stress test suggestive of ischemia 06/2019. Seen by cardiology 07/28/19, medically managed, cardio reluctant to pursue cath as she was asymptomatic. To f/u with cardio only as-needed. Status post reverse total replacement of right shoulder (~10/2020) Medical History Chronic constipation Allergic rhinitis Hx of insomnia History of rib fracture (07/04/22) due to fall Hx of major depression History of sleep apnea denies, uses a raised bed that helps History of COVID-19 (~2019) not hospitalized, resolved Hx of vertigo Transient ischemic attack (TIA) (~2013) ASA, no neuro HX: breast cancer lt, no chemo or XRT Osteoarthritis GERD (gastroesophageal reflux disease) Peripheral neuropathy b/l feet Surgical History History of bilateral cataract extraction Hx of arthroscopy of right knee History of repair of right rotator cuff (~04/2019) History of bilateral tubal ligation History of colonoscopy (01/06/19) Dr. Simpson, sigmoid diverticulosis, repeat 10 years History of tooth extraction Family History Brother Asthma Lung disease COPD Sister Asthma Aunt Breast cancer Mother Heart disease Kidney disease Myocardial infarction Grandmother (Maternal) Myocardial infarction Grandmother (Paternal) Myocardial infarction Other Cancer Diabetes Gallbladder disease Heart disease Hypertension Kidney stone Lung cancer No family history of adverse response to anesthesia Denies family history of Ovarian cancer Prostate cancer Colorectal cancer Social History Smoking Status: Former smoker Tobacco Type: Cigarettes Age Started Using Tobacco: 20; Age Quit Using Tobacco: 29; packs per day: 1; Cigarettes Per Day: 1 PPD; Second Hand Exposure: No; Do You Dip or Chew Tobacco: No; Hx Alcohol Use: No Hx Substance Use: No Preferred Language: Macedonian Communication Ability: Effective Visual Impairment: No Limitations Hearing Ability: Normal Jewelry Bench Worker Required: No Beliefs That Will Affect Care: None marital status: Current Living Situation: Spouse current occupational status: retired 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 Physical Exam Physical Exam: The patient is awake, alert and oriented 3, well developed and well nourished, normocephalic and atraumatic, lying in bed and in no acute distress. HEENT--PERRL, EOMI, mucous membranes and oropharynx mildly dry Neck--supple. No JVD. No bruits. Thyroid normal, trachea midline, no adenopathy. Heart--normal S1 and S2. No murmurs, rubs or gallops. Lungs--Reduced endurance further, bibasilar crackles Abdomen--normal bowel sounds and soft. Extremities--no cyanosis or clubbing. No edema. Dermatologic--normal skin turgor, normal color, no abnormal lymph nodes, no rash. Neurologic--cranial nerves II through XII grossly intact. Rheumatologic--normal range of motion. Psychiatric--normal affect. Results & Data Results & Data Vital Signs (Past 12 Hours) Vital Signs Temp Pulse Pulse Resp BP BP Pulse Ox 11/18/24 13:28 79 18 141/93 H 91 11/18/24 13:20 67 11/18/24 12:36 11/18/24 12:36 26 H 93 11/18/24 12:36 11/18/24 12:28 98.2 F 70 18 189/86 H 91 O2 Del Method 11/18/24 13:28 Room Air 11/18/24 13:20 11/18/24 12:36 Room Air 11/18/24 12:36 Room Air 11/18/24 12:36 Room Air 11/18/24 12:28 Room Air PG Care Time/CCT Total # of Minutes Spent Total Time Spent with Patient: Total time spent is greater than 50% in coordination of care (as documented) at patient's floor/unit and/or counseling patient: Coding Level of Care Code 13863 INT INP/OBS CARE 3/75MIN Diagnoses Sepsis A41.9 Lobar pneumonia J18.1 Influenza A J10.1 Breast cancer C50.919 Breast location: unspecified site of breast Anxiety F41.9 Elevated troponin R79.89 Chronic asthma with acute exacerbation J45.901 Time Spent (min) 75 (4) Breast cancer Breast location: unspecified site of breast
[2024-11-18 18:10] LABS: Appearance Urine Clear (Clear); Bilirubin Urine Negative (Negative); Blood Urine Negative (Negative); Color Urine Yellow; Glucose Urine UA Negative (Negative); Ketones Urine Negative (Negative); Leukocyte Esterase Urine Negative (Negative); Nitrite Urine Negative (Negative); Protein Urine Negative (Negative); Specific Gravity Urine > 1.045 (1.000-1.030); Urobilinogen Urine Negative (Negative); pH Urine 6.5 (4.5-7.5)
[2024-11-18] MEDS: BUDESONIDE 0.25 MG/2 ML VIAL (PULMICORT) NEB SCH (19:31)
[2024-11-18] MEDS: LOSARTAN POTASSIUM 50 MG TAB PO SCH (20:14)
[2024-11-18] MEDS: traZODone HCL 100 MG TAB PO SCH (20:47)
[2024-11-18] MEDS: IBUPROFEN 200 MG TAB PO PRN (20:49)
[2024-11-18] MEDS: DOXYCYCLINE HYCLATE 100 MG CAP PO SCH (23:06)
[2024-11-18] MEDS: ALBUT/IPRATROP 3MG/0.5MG NEB 3 ML VIAL NEB SCH (23:10)
[2024-11-19 06:40] LABS: Hematocrit (blood only) 38.8 % (37.0-47.0); Hemoglobin 13.7 g/dl (12.0-16.0); Mean Corpuscular Hemoglobin 30.6 pg (25.0-34.0); Mean Corpuscular Hgb Conc 35.3 g/dL (32.0-36.0); Mean Corpuscular Volume 86.6 fL (80.0-100.0); Mean Platelet Volume 9.5 fL (9.4-12.4); Platelet Count 199 K/uL (130-400); RDW Coefficient of Variation 12.3 % (11.5-14.5); RDW Standard Deviation 39.2 fL (36.4-46.3); Red Blood Count 4.48 M/uL (4.20-5.40)
[2024-11-19 06:53] LABS: BUN Creatinine Ratio 17.9 (10-20); Calcium 8.6 mg/dl (8.6-10.3); Creatinine Clr Calc Pharmacy 53.9 ml/min
[2024-11-19] MEDS: ASPIRIN 81 MG ECTAB PO SCH (07:35)
[2024-11-19] MEDS: CALCIUM 600MG + VIT D 400 IU TAB PO SCH (07:35)
[2024-11-19] MEDS: ROSUVASTATIN CALCIUM 10 MG TAB PO SCH (07:35)
--- NOTE | 2024-11-19 11:20 | Hospitalist Progress Note ---
Date of Service November 19, 2024 Assessment & Plan (1) Sepsis: Plan: Patient presents to the hospital worsening shortness of breath, having been diagnosed with influenza a few days ago. WBC elevated, serum lactate 2.1, evidence of pneumonia on CT scan Received some fluids in the emergency department Started on empiric IV ceftriaxone and doxycycline sepsis is improving (2) Lobar pneumonia: Plan: Diagnosed with influenza A few days ago however her symptoms did not get better Presents to the hospital worsening shortness of breath and cough with sputum production CT chest showed evidence of pneumonia Blood cultures already obtained, will add sputum culture also urine antigen for Legionella, strep Continue empiric IV ceftriaxone and doxycycline Clinically much improved today (3) Influenza A: Plan: Diagnosis more than 6 days ago Will defer anti flu medication (4) Breast cancer: Plan: Had double mastectomy Has been cancer free (5) Anxiety: Plan: Will continue home medication (6) Elevated troponin: Plan: Mild elevation in troponin, most likely due to sepsis and demand ischemia Will trend troponin EKG did not show any ST changes (7) Chronic asthma with acute exacerbation: Plan: Patient has a history of asthma, has not used her home inhaler in a long time. However current exacerbation most likely due to pneumonia. Will continue DuoNebs scheduled and as needed And budesonide Plan Admit to telemetry Full code DVT prophylaxis SCDs Disposition: Hopefully d/c home in the next 24-48 hrs Admission and Anticipated Discharge Date Admission Date: November 18, 2024 Subjective patient seen and examined, feels better today, sitting up in the chair Review of Systems Review of Systems: All systems reviewed are negative, apart from the ones contained in the history. Physical Exam Physical Exam: The patient is awake, alert and oriented 3, well developed and well nourished, normocephalic and atraumatic, lying in bed and in no acute distress. HEENT--PERRL, EOMI, mucous membranes and oropharynx mildly dry Neck--supple. No JVD. No bruits. Thyroid normal, trachea midline, no adenopathy. Heart--normal S1 and S2. No murmurs, rubs or gallops. Lungs--Reduced endurance further, bibasilar crackles Abdomen--normal bowel sounds and soft. Extremities--no cyanosis or clubbing. No edema. Dermatologic--normal skin turgor, normal color, no abnormal lymph nodes, no rash. Neurologic--cranial nerves II through XII grossly intact. Rheumatologic--normal range of motion. Psychiatric--normal affect. Results & Data Results & Data Vital Signs (Past 12 Hours) Vital Signs Temp Pulse Resp BP Pulse Ox O2 Del Method 11/19/24 11:04 84 18 95 Room Air 11/19/24 07:38 Room Air 11/19/24 07:07 65 18 128/81 93 Room Air 11/19/24 06:58 84 18 94 Room Air 11/19/24 06:00 Room Air 11/19/24 04:31 76 18 93 Room Air 11/19/24 02:58 98.4 F 73 18 142/79 H 92 Room Air PG Care Time/CCT Total # of Minutes Spent Total Time Spent with Patient: Total time spent is greater than 50% in coordination of care (as documented) at patient's floor/unit and/or counseling patient: Coding Level of Care Code 89888 SUB INP/OBS CARE 2/35MIN Diagnoses Sepsis A41.9 Lobar pneumonia J18.1 Influenza A J10.1 Breast cancer C50.919 Breast location: unspecified site of breast Anxiety F41.9 Elevated troponin R79.89 Chronic asthma with acute exacerbation J45.901 Time Spent (min) 35 (4) Breast cancer Breast location: unspecified site of breast
[2024-11-19] MEDS: POTASSIUM CHLORIDE CRTAB 20 MEQ TABCR PO STA (12:01)
[2024-11-19] MEDS: cefTRIAXone SODIUM 2,000 MG/50 ML BAG IV SCH (15:07)
[2024-11-19] MEDS: ALUMINUM/MAGNESIUM/SIMETH (MAALOX MAX) 30 ML UDC PO PRN (18:36)
[2024-11-19] MEDS: PANTOprazole 40 MG TAB PO SCH (18:37)
[2024-11-19] MEDS: ALBUT/IPRATROP 3MG/0.5MG NEB 3 ML VIAL NEB SCH (23:07)
[2024-11-20 02:27] VITALS: TEMP 97.7
[2024-11-20 07:23] LABS: Hemoglobin 15.1 g/dl (12.0-16.0); Mean Corpuscular Hemoglobin 30.4 pg (25.0-34.0); Mean Corpuscular Hgb Conc 34.3 g/dL (32.0-36.0); Mean Corpuscular Volume 88.5 fL (80.0-100.0); Mean Platelet Volume 9.7 fL (9.4-12.4); Platelet Count 248 K/uL (130-400); RDW Coefficient of Variation 12.6 % (11.5-14.5); RDW Standard Deviation 41.1 fL (36.4-46.3); Red Blood Count 4.97 M/uL (4.20-5.40); White Blood Count 7.66 K/ul (4.8-10.8)
[2024-11-20 07:40] LABS: BUN Creatinine Ratio 20.2 (10-20); Calcium 8.9 mg/dl (8.6-10.3); Creatinine Clr Calc Pharmacy 57.7 ml/min
[2024-11-20 08:04] VITALS: BP 116/80; PULSE 83; RESP 18; O2SAT 91
[2024-11-20 08:28] LABS: A calco-baum cmplx NotReported Not Detected (NotDetected); Bact fragilis Not Reported Not Detected (NotDetected); Blood Culture Id Panel PCR Panel Negative (NotDetected); C auris Not Reported Not Detected (NotDetected); Calbicans Not Reported Not Detected (NotDetected); Candida glabrata Not Reported Not Detected (NotDetected); Candida krusei Not Reported Not Detected (NotDetected); Cneoformans/gatti Not Reported Not Detected (NotDetected); Cparapsilosis Not Reported Not Detected (NotDetected); E cloacae compx Not Reported Not Detected (NotDetected); Efaecalis Not Reported Not Detected (NotDetected); Efaecium Not Reported Not Detected (NotDetected); Enterobacterales Not Reported Not Detected (NotDetected); Escherichia coli Not Reported Not Detected (NotDetected); H influenzae Not Reported Not Detected (NotDetected); K aerogenes Not Reported Not Detected (NotDetected); Koxytoca Not Reported Not Detected (NotDetected); Kpneumoniae grp Not Reported Not Detected (NotDetected); Lmonocyt Not Reported Not Detected (NotDetected); N meningitidis Not Reported Not Detected (NotDetected); P aeruginosa Not Reported Not Detected (NotDetected); Proteus spp Not Reported Not Detected (NotDetected); Salmonella spp Not Reported Not Detected (NotDetected); Staph lugdunensis Not Reported Not Detected (NotDetected); Staph spp. Not Reported Not Detected (NotDetected); Staphaureus Not Reported Not Detected (NotDetected); Staphepi Not Reported Not Detected (NotDetected); Stenmaltophilia Not Reported Not Detected (NotDetected); Strep agal(GrpB) Not Reported Not Detected (NotDetected); Strep pneum Not Reported Not Detected (NotDetected); Strep pyog (GrpA) Not Reported Not Detected (NotDetected); Strep spp Not Reported Not Detected (NotDetected)
--- NOTE | 2024-11-20 09:51 | Discharge Summary ---
Date of Service November 20, 2024 Admission HPI Per Admitting Provider This is a 69-year-old female with a history of asthma, breast cancer status post double mastectomy, who presents to the emergency department today on account of worsening shortness of breath and cough. According to the patient, she was diagnosed with influenza a few days ago and came to the emergency department. She was given steroids and then sent home. She improved for couple days but then her shortness of breath got worse coupled with worsening cough and sputum production. She also complained of chest pain and back pain. This necessitated her coming to the emergency department today. Here in the emergency department vital signs were normal, blood pressure 140/90 pulse 79, afebrile saturating well on room air. WBC was 11,[address] scan of the chest did not show any evidence of pulmonary emboli but shows left lower lobe pneumonia and possible mucous plugging. Cultures were obtained and patient has been progressively on IV antibiotics and will be admitted to the hospital further management. Admission Exam (Per Admitting) Constitutional The patient is awake, alert and oriented 3, well developed and well nourished, normocephalic and atraumatic, lying in bed and in no acute distress. HEENT--PERRL, EOMI, mucous membranes and oropharynx mildly dry Neck--supple. No JVD. No bruits. Thyroid normal, trachea midline, no a denopathy. Heart--normal S1 and S2. No murmurs, rubs or gallops. Lungs--clear bilaterally, no respiratory distress, no accessory muscle use. Abdomen--normal bowel sounds and soft. Extremities--no cyanosis or clubbing. No edema. Dermatologic--normal skin turgor, normal color, no abnormal lymph nodes, no rash. Neurologic--cranial nerves II through XII grossly intact. Rheumatologic--normal range of motion. Psychiatric--normal affect. Discharge Data Consultations 11/18/24 15:23 ED Decision to Admit Stat Hospital Course (1) Sepsis: Resolved (2) Lobar pneumonia: Diagnosed with influenza A few days ago however her symptoms did not get better Presents to the hospital worsening shortness of breath and cough with sputum production CT chest showed evidence of pneumonia Blood cultures already obtained, will add sputum culture also urine antigen for Legionella, strep Continue empiric IV ceftriaxone and doxycycline Clinically much improved today Discharge on PO cefdinir 300mg BID for 5 days (3) Influenza A: Diagnosis more than 6 days ago Will defer anti flu medication (4) Breast cancer: Had double mastectomy Has been cancer free (5) Anxiety: Will continue home medication (6) Elevated troponin: Mild elevation in troponin, most likely due to sepsis and demand ischemia Will trend troponin EKG did not show any ST changes (7) Chronic asthma with acute exacerbation: Patient has a history of asthma, has not used her home inhaler in a long time. However current exacerbation most likely due to pneumonia. Will continue DuoNebs scheduled and as needed And budesonide Plan Admit to telemetry Full code DVT prophylaxis SCDs Disposition:d/c home Coding Level of Care Code 04203 INP/OBS DISCH >30 MIN Diagnoses Sepsis A41.9 Lobar pneumonia J18.1 Influenza A J10.1 Breast cancer C50.919 Breast location: unspecified site of breast Anxiety F41.9 Elevated troponin R79.89 Chronic asthma with acute exacerbation J45.901 Time Spent (min) 35
[2024-11-23 16:07] LABS: Mycoplasma pneumoniae Ab, IgG 2.16 (<=0.90); Mycoplasma pneumoniae Ab, IgM 146 U/mL (<770); Pneumococcal IgG Type 1 5.6; Pneumococcal IgG Type 12 (12F) <0.3; Pneumococcal IgG Type 14 6.4; Pneumococcal IgG Type 17 (17F) 2.8; Pneumococcal IgG Type 19 (19F) 3.5; Pneumococcal IgG Type 2 12.9; Pneumococcal IgG Type 20 1.6; Pneumococcal IgG Type 22 (22F) 0.5; Pneumococcal IgG Type 23 (23F) 0.8; Pneumococcal IgG Type 26 (6B) 1.7; Pneumococcal IgG Type 3 3.6; Pneumococcal IgG Type 4 0.6; Pneumococcal IgG Type 43 (11A) 0.9; Pneumococcal IgG Type 5 18.2; Pneumococcal IgG Type 51 (7F) 3.9; Pneumococcal IgG Type 54 (15B) 10.8; Pneumococcal IgG Type 56 (18C) 2.7; Pneumococcal IgG Type 57 (19A) 9.9; Pneumococcal IgG Type 68 (9V) 18.3; Pneumococcal IgG Type 70 (33F) 1.5; Pneumococcal IgG Type 8 0.7; Pneumococcal IgG Type 9 (9N) 9.1
== END 2024-11-20 10:10 | disposition home or self-care (01) | DRG 871 ==
LOC: SUATTDRO → ED 12:26 → INTOOBSV 15:28 → 4W 15:28